=== PATIENT | female | born 1955 | race Caucasian/White ===

== ENCOUNTER 2022-09-08 16:30 | Emergency (ER) | payer OTHER ==
--- NOTE | 2022-09-08 17:27 | RAD REPORT ---
EXAM DESCRIPTION: [facility] Single View09/08/2022 5:21 pm CLINICAL HISTORY: weakness COMPARISON: No comparisons TECHNIQUE: Portable AP view of the chest. FINDINGS: The lungs are clear. No pneumothorax or effusion. The cardiomediastinal contours are unre markable. IMPRESSION: No acute cardiopulmonary process.
[2022-09-08 17:31] LABS: Absolute Lymphocytes (CBC) 2.8 K/uL (0.7-4.9); Hematocrit 30.3 % (36.0-45.0); Lymphocytes % 28.2 % (15.3-44.8); RBC Red Blood Cell Count 3.23 M/uL (3.86-4.86)
[2022-09-08 17:42] LABS: Potassium 3.6 mEq/L (3.5-5.1); Troponin High Sensitivity 4.2 pg/mL (<58.9)
[2022-09-08] MEDS ORDERED: Ringers Lactate 1,000 ML IV ONE (18:09)
--- NOTE | 2022-09-08 18:14 | RAD REPORT ---
EXAM DESCRIPTION: CT - Head Brain Wo Cont - 09/08/2022 5:57 pm CLINICAL HISTORY: near syncope COMPARISON: No comparisons TECHNIQUE: Noncontrast head CT images were obtained without IV contrast. Multiplanar reformats were generated and reviewed. All CT scans are performed using dose optimization technique as appropriate and may include automated exposure control or mA/KV adjustment according to patient size. FINDINGS: No intracranial hemorrhage, mass, or edema. Midline structures are unremarkable. Normal ventricular caliber for age. Ibarra-white matter differentiation is preserved, without evidence of acute infarct. No abnormal extra- axial fluid collections. Mastoid air cells and visualized portions of the paranasal sinuses are clear. No acute bony findings. IMPRESSION: No evidence of an acute intracranial process.
[2022-09-08 19:37] LABS: Specific Gravity 1.006 (1.005-1.030); Urine Bacteria 20-50 /HPF (<20); Urine Bilirubin NEGATIVE (Negative); Urine Blood Negative (Negative); Urine Clarity Extremely Turbid (Clear); Urine Color Colorless (Yellow); Urine Glucose NEGATIVE (Negative); Urine Mucus Slight /HPF (None Seen); Urine Protein NEGATIVE (Negative); Urine RBC <5 /HPF (None Seen); Urine Urobilinogen Normal (Normal)
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
--- NOTE | 2022-09-08 20:09 | EDPHYS ---
Physician Documentation [facility] Name: Armida Marie Age: 67 yrs Sex: Female : 1955 Arrival Date: 09/08/2022 Time: 16:30 Bed 13 Private MD: ED Physician Marcial Rubio HPI: 09/08 16:39 This 67 yrs old Female presents to ER via EMS with complaints of General Weakness. jmm 16:39 This is a 67/f with a history of RA that presents to the ED with complaints of fatigue, jmm near syncope beginning approx 1 month ago. Denies chest pain, shortness of breath, vomiting, diarrhea. Patient recently had a flare of RA to both her knees. . Historical: - Allergies: 16:34 No Known Allergies; db - Immunization history:: Adult Immunizations unknown, Client reports receiving the 2nd dose of the Covid vaccine. - Social history:: Smoking status: Patient denies any tobacco usage or history of. ROS: 16:39 Cardiovascular: Negative for chest pain, palpitations, and edema, Respiratory: Negative jmm for shortness of breath, cough, wheezing, and pleuritic chest pain, Abdomen/GI: Negative for abdominal pain, nausea, vomiting, diarrhea, and constipation. 16:39 Constitutional: Positive for fatigue. 16:39 Neuro: Positive for headache, near syncope. 16:39 All other systems are negative. Exam: 16:39 Constitutional: This is a well developed, well nourished patient who is awake, alert, jmm and in no acute distress. Head/Face: atraumatic. Eyes: EOMI, no conjunctival erythema appreciated ENT: Moist Mucus Membranes Neck: Trachea midline, Supple Chest/axilla: Normal chest wall appearance and motion. Cardiovascular: Regular rate and rhythm. No edema appreciated Respiratory: Normal respirations, no respiratory distress appreciated Abdomen/GI: Non distended Back: Normal ROM Skin: General appearance color normal MS/ Extremity: Moves all extremities, no obvious deformities appreciated, no edema noted to the lower extremities Neuro: Awake and alert Psych: Behavior is normal, Mood is normal, Patient is cooperative and pleasant Vital Signs: 16:26 BP 114 / 64; Pulse 71; Resp 16; Temp 98.8; Pulse Ox 99% ; Weight 63.5 kg; Height 5 ft. db 5 in. ; 17:00 BP 120 / 74; Pulse 70; Resp 16; Pulse Ox 98% on R/A; db 18:07 BP 119 / 69; Pulse 61; Resp 16; Pulse Ox 97% on R/A; db 19:00 BP 123 / 78; Pulse 58; Resp 16; Pulse Ox 100% on R/A; vc1 20:06 BP 149 / 60; Pulse 59; Resp 15; Pulse Ox 100% ; vc1 16:26 Body Mass Index 23.30 (63.50 kg, 165.1 cm) db MDM: 16:39 Patient medically screened. [facility] 22:57 Differential Diagnosis syncope, anemia, chf, sepsis, cad. Data reviewed: vital signs, [facility] nurses notes, lab test result(s), radiologic studies, CT scan, plain films. I considered the following discharge prescriptions or medication management in the emergency department Medications were administered in the Emergency Department. See MAR. Counseling: I had a detailed discussion with the patient and/or guardian regarding: the historical points, exam findings, and any diagnostic results supporting the discharge/admit diagnosis, lab results, radiology results, the need for outpatient follow up, to return to the emergency department if symptoms worsen or persist or if there are any questions or concerns that arise at home. ED course: Labs concerning for dehydration. IVF given. UA concerning for uti. Advised to follow up with pcp and otherwise given strict return precautions. patient understood and agrees with the plan of care. . 09/08 16:43 Order name: Basic Metabolic Panel; Complete Time: 17:45 [facility] 09/08 16:43 Order name: CBC with Diff; Complete Time: 17:32 [facility] 09/08 16:43 Order name: NT PRO-BNP; Complete Time: 17:45 [facility] 09/08 16:43 Order name: Troponin HS; Complete Time: 17:45 [facility] 09/08 16:43 Order name: Urinalysis w/ reflexes; Complete Time: 19:58 [facility] 09/08 16:43 Order name: SARS-COV-2 RT PCR; Complete Time: 20:33 [facility] 09/08 20:00 Order name: Urine Culture [facility] 09/08 16:43 Order name: XRAY Chest (1 view); Complete Time: 17:28 [facility] 09/08 17:28 Order name: CT Head Brain wo Cont; Complete Time: 18:15 [facility] 09/08 16:43 Order name: EKG; Complete Time: 16:44 [facility] 09/08 16:43 Order name: Cardiac monitoring; Complete Time: 18:09 [facility] 09/08 16:43 Order name: EKG - Nurse/Tech; Complete Time: 18:09 [facility] 09/08 16:43 Order name: IV Saline Lock; Complete Time: 18:09 [facility] 09/08 16:43 Order name: Labs collected and sent; Complete Time: 18: [facility] 09/08 16:43 Order name: O2 Per Protocol; Complete Time: 18: [facility] 09/08 16:43 Order name: O2 Sat Monitoring; Complete Time: 18: [facility] Administered Medications: 18:05 Drug: Lactated Ringers Solution IV 500 ml Route: IV; Rate: 250 ml/hr; Site: right db forearm; 20:20 Follow up: IV Status: Completed infusion; IV Intake: 500ml vc1 20:19 Drug: Rocephin IV 1 grams Route: IV; Rate: calculated rate; Site: right hand; vc1 Disposition: 09/09 10:00 Co-signature as Attending Physician, Marcial Rubio MD I reviewed the patient's care rt provided by the Advanced Practice Provider and agree with the diagnosis and treatment plan. Disposition Summary: 09/08/22 20:08 Discharge Ordered Location: Home [facility] Condition: Stable [facility] Diagnosis - UTI/ Urinary tract infection, site not specified jmm - Weakness [facility] Followup: [facility] - With: Private Physician - When: 2 - 3 days - Reason: Recheck today's complaints, Continuance of care, Re-evaluation by your physician Discharge Instructions: - Discharge Summary Sheet [facility] - Urinary Tract Infection, Adult [facility] Forms: - Medication Reconciliation Form [facility] - Thank You Letter [facility] - Antibiotic Education [facility] - Prescription Opioid Use [facility] Prescriptions: - Voltaren Arthritis Pain 1 % Topical gel - apply 4 gram by TOPICAL route 4 times per day As needed apply to single knee, jmm ankle, foot; for foot includes sole/toes/top of foot; 1 unit; Refills: 0, Product Selection Permitted - cefpodoxime 200 mg Oral Tablet - take 1 tablet by ORAL route every 12 hours for 10 days with food; 20 tablet; [facility] Refills: 0, Product Selection Permitted Signatures: Dispatcher [employer] EDMS MickaJoao bonilla PA PA jmm Calcote, Vanessa RN RN vc1 Anna Ontiveros, RN RN db Marcial Rubio MD MD rt
[2022-09-08] MEDS ORDERED: CEFTRIAXONE 1000 MG/VIAL ONE (20:17)
[2022-09-08] MEDS ORDERED: NA CHLORIDE 0.9% 50 ML ONE (20:17)
[2022-09-08 21:23] VITALS: O2SAT 100
[2022-09-08 21:29] VITALS: BP 149/60
--- NOTE | 2022-09-09 17:42 | EKG ---
Test Date: 2022-09-08 Test Time: 17:09:17 Tamale Maker: GLORY MEASUREMENT RESULTS: Intervals: Rate: 63 FL: 164 QRSD: 80 QT: 394 QTc: 403 Ragland: P: 36 FL: 164 QRS: -6 T: 25 INTERPRETIVE STATEMENTS: Normal sinus rhythm Normal ECG No previous ECG available for comparison Electronically Signed On 09-09-22 17:39:30 CDT by Jose Carbajal
== END 2022-09-08 20:39 | disposition home or self-care (01) ==
LOC: ER 16:30
DX: N39.0 Urinary tract infection, site not specified (principal); Z20.822 Contact with and (suspected) exposure to COVID-19
CPT/HCPCS: 87088; 85025; 81001; 87086; 80048; 36415; 84484; 83880; 87635; 70450; 71045; J7120; J0696; 93005

== ENCOUNTER 2023-01-07 21:00 | Emergency (ER) | payer OTHER ==
--- OUTSIDE RECORDS SUMMARY | 2023-01-07 21:04 | XMS REPORT | Continuity of Care Document ---
:1955 Author Organization [facility] t Address [address] [place] [address] [place] [id number] Care Team Providers Name Role Phone HANNAH QUILES Primary Care Physician Unavailable Rosario Yu RN Attending Clinician Unavailable Hannah Quiles MD Attending Clinician Radha Phipps Attending Clinician Unavailable Spencer Perez MD Attending Clinician Bobbi Patricia RN Attending Clinician Unavailable TOBIN LINO Attending Clinician Unavailable Tobin Lino MD Attending Clinician Doctor Unassigned, [place] Attending Clinician Unavailable JHON MENDOZA Attending Clinician Unavailable Jhon Leo Attending Clinician TOBIN LINO Admitting Clinician Unavailable JHON MENDOZA Admitting Clinician Unavailable Payers Payer Name Policy Type Policy Number Effective Date Expiration Date S [facility] - [id number] 2021 00:00:00 OUT OF STATE Problems Condition Condition Condition Status Onset Resolution Last Treating Co mments Source Name Details Category Date Date Treatment Clinician Date Hypokalemi Hypokalemi Disease Active M ethodi a a 12-08 00:00: Hospita 00 l Acute Acute Disease Active Methodi cystitis cystitis 09-14 st without without 00:00: Hospita hematuria hematuria 00 l Greater Greater Disease Active Methodi trochanter trochanter 6-27 st ic ic 00:00: Hospita bursitis bursitis 00 l of left of left hip hip Polyarticu Polyarticu Disease Active M ethodi lar lar [address] st arthritis arthritis 00:00: Hosp navid 00 l Chronic Chronic Disease Active Methodi pain pain [address] syndrome syndrome 00:00: Hospit a 00 l Anxiety Anxiety Disease Active Methodi 08-17 st 00:00: Hospita 00 l 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 08-17 sterolemia sterolemia 00:00: Ho spita 00 l Near Near Disease Active Methodi syncope syncope 08-17 st 00:00: Hospita 00 l Lumbar Lumbar Disease Active Methodi back pain back pain 08-17 st with with 00:00: Hospita radiculopa radiculopa 00 l thy thy affecting affecting left lower left lower extremity extremity Primary Primary Disease Active Methodi insomnia insomnia 12-05 00:00: Hospita 00 l Osteoarthr Osteoarthr Disease Active M ethodi itis of itis of 12-05 hand hand 00:00: Hospita 00 l Morbid Morbid Disease Active Methodi obesity obesity 12-05 00:00: Hospita 00 l Essential Essential Disease Active Met hodi hypertensi hypertensi 17 st on on 00:00: Hospita 00 l No known No known Disease Unive rs active active ity of problems problems [facility] Allergies, Adverse Reactions, Alerts Allergy Allergy Status Severity Reaction(s) Onset Inactive Treating Comm ents Source Name Type Date Date Clinician NO KNOWN Drug Active Univers ALLERGIE Class ity of S [facility] Social History Social Habit Start Date Stop Date Quantity Comments Source Sexual orientation Method [facility] Hospital Exposure to 2021-08-01 2021-08-11 Not sure [facility] SARS-CoV-2 (event) 00:00:00 09:21:00 [facility] Branch Sex Ass[birth year] At [birth year] [facility] 00:00:00 00:00:00 Smoking Status Start Date Stop Date Source Tobacco smoking consumption unknown [facility] Medications Ordered Filled Start Stop Current Ordering Indication Dosage Frequency Signature Comments Components Source Medication Medication Date Date Medication? Clinician (SIG) Name Name mupirocin 2022-03 Yes [id number] Apply M ethodi (BACTROBAN) 0-[id number] 2 % cream 00:00: 3D 3 (three) Hos krystyna 00 times a l day. Apply a small amount to affected area on face atorvastati 2022-03 Yes 10mg QD Take 1 Meth madhu n (LIPITOR) 0-09 tablet (10 st 10 mg 13:54: mg total) Hospita tablet 48 by mouth l daily. ALPRAZolam 2022-03 Yes TAKE 1 Metho di (XANAX) 2 0-[address] MG tablet 00:00: MOUTH FOUR Ho spita 00 TIMES A l DAY NEEDED dextroamphe Yes TAKE 1 Meth madhu tamine-amph 9-[address] etamine 00:00: MOUTH Hospita (ADDERALL) 00 TWICE l 20 mg DAILY tablet HYDROcodone Yes [id number] 1{tbl} Q6H Take 1 M ethodi -acetaminop 9-[address] hen ([employer]) 00:00: mouth Hospi ta 10-325 mg 00 every 6 l per tablet (six) hours as needed for moderate pain .chronic pain, one tab po q 8 prn pain. Max Daily Amount: 4 tablets ALPRAZolam 2022- No TAKE ONE Me thodi (XANAX) 2 9- 10-03 (1) st MG tablet 00:00: 00:00 TABLET(S) Ho spita 00 :00 BY MOUTH l FOUR TIMES A DAY NEEDED. buPROPion Yes TAKE 1 Method i (WELLBUTRIN 9-[address] ) 75 MG 00:00: MOUTH ONCE Hosp navid tablet 00 A DAY l cyclobenzap Yes TAKE 1 Meth madhu rine 9-[address] (FLEXERIL) 00:00: MOUTH Hospit a 10 mg 00 TWICE l tablet DAILY HYDROcodone 2022- No TAKE 2 Met hodi -acetaminop 8-31 09-29 TABLETS BY s t hen ([employer]) 00:00: 00:00 MOUTH Hosp navid 10-325 mg 00 :00 THREE l per tablet TIMES DAILY NEEDED FOR PAIN dextroamphe 0 2022- No TAKE 1 Met hodi tamine-amph 11-[address] etamine 00:00: 00:00 MOUTH Hospita (ADDERALL) 00 :00 TWICE l 20 mg DAILY tablet carvediloL 2022-0 Yes 25mg Q.5D TAKE 1 Metho di (COREG) 25 11-[address] MG tablet 00:00: MOUTH Hospita 00 TWICE l DAILY escitalopra 2022-0 Yes 5mg Q.5D TAKE 1 Meth madhu m (LEXAPRO) 11-[address] 5 MG tablet 00:00: MOUTH Hospi ta 00 TWICE A l DAY gemfibroziL 2022-0 Yes 600mg Q.5D TAKE 1 Met hodi (LOPID) 600 11-[address] MG tablet 00:00: MOUTH Hospita 00 TWICE l DAILY hydroCHLORO 2022-0 Yes 25mg QD TAKE 1 Meth madhu thiazide 11-[address] (HYDRODIURI 00:00: MOUTH Hospi ta L) 25 MG 00 EVERY DAY l tablet cyclobenzap 2022- No TAKE 1 Met hodi rine 11-13 TABLET BY (FLEXERIL) 00:00: 00:00 MOUTH Hospi ta 10 mg 00 :00 TWICE l tablet DAILY nitrofurant 2022-0 Yes 100mg Q.5D Take 1 Met hodi oin, 11-[address] macrocrysta 00:00: (100 mg Hos krystyna l-monohydra 00 total) by l te, mouth 2 (MACROBID) (two) 100 MG times a capsule day. dextroamphe 2022-2022- No TAKE 1 Met hodi tamine-amph 10-[address] etamine 00:00: 00:00 MOUTH Hospita (ADDERALL) 00 :00 TWICE l 20 mg DAILY tablet HYDROcodone 2022-0 2022- No TAKE 2 Met hodi -acetaminop 10-19 TABLETS BY gio chester (NORCO) 00:00: 00:00 MOUTH Hosp navid 10-325 mg 00 :00 THREE l per tablet TIMES DAILY NEEDED FOR PAIN traZODone 2022-0 Yes Methodi (DESYREL) 10-18 st 100 MG 00:00: Hospita tablet 00 l hydroCHLORO 2022- No Metho di thiazide 10-18 st (HYDRODIURI 00:00: 00:00 Hospi ta L) 25 MG 00 :00 l tablet escitalopra 2022- No Metho di m (LEXAPRO) 10-18 st 5 MG tablet 00:00: 00:00 Hospi ta 00 :00 l cyclobenzap 2022- No 10mg Q.5D Take 1 Met hodi rine 10-14 tablet (10 st (FLEXERIL) 15:35: 00:00 mg total) H ospita 10 mg 52 :00 by mouth 2 l tablet (two) times a day as needed. cyclobenzap 2022- No TAKE 1 Met hodi rine 10-[address] (FLEXERIL) 00:00: 00:00 MOUTH Hospi ta 10 mg 00 :00 TWICE l tablet DAILY zolpidem Yes TAKE 1 AND Met hodi (AMBIEN) 10 10-08 1/2 st mg tablet 00:00: TABLETS BY Ho spita 00 MOUTH AT l BEDTIME eszopiclone Yes [id number] 3mg QD Take 1 M ethodi (LUNESTA) 3 - tablet (3 st mg tablet 00:00: mg total) Hos krystyna 00 by mouth l nightly. Take immediatel y before bedtime mupirocin Yes APPLY A Metho di (BACTROBAN) 09-[address] 2 % 00:00: AMOUNT TO Hospita ointment 00 AFFECTED l AREA THREE TIMES A DAY TO LEG buPROPion 2022- No TAKE 1 Metho di (WELLBUTRIN 09-[address] ) 75 MG 00:00: 00:00 MOUTH ONCE Hos krystyna tablet 00 :00 A DAY l HYDROcodone 2022- No TAKE 2 Met hodi -acetaminop 09-15 TABLETS BY gio chester (NORCO) 00:00: 00:00 MOUTH Hosp navid 10-325 mg 00 :00 THREE l per tablet TIMES DAILY NEEDED FOR PAIN dextroamphe 2022- No TAKE 1 Met dwight tamine-amph 09-[address] etamine 00:00: 00:00 MOUTH Hospita (ADDERALL) 00 :00 TWICE l 20 mg DAILY tablet ALPRAZolam 2022- No TAKE 1 Meth madhu (XANAX) 2 08-[address] MG tablet 00:00: 00:00 MOUTH FOUR H ospita 00 :00 TIMES A l DAY NEEDED ALPRAZolam 2022- No TAKE 1 Meth madhu (XANAX) 2 08-[address] MG tablet 00:00: 00:00 MOUTH FOUR H ospita 00 :00 TIMES A l DAY NEEDED dextroamphe 2022- No TAKE 1 Met hodi tamine-amph 08-[address] etamine 00:00: 00:00 MOUTH Hospita (ADDERALL) 00 :00 TWICE l 20 mg DAILY tablet HYDROcodone 2022- No TAKE 2 Met hodi -acetaminop 08-19 TABLETS BY gio chester ([employer]) 00:00: 00:00 MOUTH Hosp navid 10-325 mg 00 :00 THREE l per tablet TIMES DAILY NEEDED FOR PAIN amoxicillin 2022- No [id number] 1{tbl} Q.5D Take 1 Methodi -pot 08-[address] clavulanate 00:00: 00:00 mouth 2 Ho spita (Augmentin) 00 :00 (two) l 875-125 mg times a per tablet day. escitalopra 2022- No 5mg Q.5D Take 1 Met dwight m (LEXAPRO) 07-19 tablet (5 st 5 MG tablet 00:00: 00:00 mg total) Hospita 00 :00 by mouth 2 l (two) times a day. mupirocin 2022- No [id number] Apply Methodi (BACTROBAN) 06-[id number] 2 % cream 00:00: 00:00 3D 3 (three) Ho spita 00 :00 times a l day. Apply a small amount to affected area to leg buPROPion 2022- No 75mg QD Take 1 Metho di (WELLBUTRIN 3-07 06-29 tablet (75 s t ) 75 MG 00:00: 00:00 mg total) Hosp navid tablet 00 :00 by mouth l daily. dextroamphe 2022- No 20mg Q.5D Take 1 Met hodi tamine-amph 2-10 -06 tablet (20 s t etamine 00:00: 00:00 mg total) Hosp navid (ADDERALL) 00 :00 by mouth 2 l 20 mg (two) tablet times a day. ALPRAZolam 2021-03- No 2mg Q.25D Take 1 Met hodi (XANAX) 2 05-18-12 tablet (2 st MG tablet 00:00: 00:00 mg total) Ho spita 00 :00 by mouth 4 l (four) times a day as needed for anxiety. hydroCHLORO 2021-03- No 25mg QD Take 1 Met hodi thiazide 1-14 06-13 tablet (25 st (HYDRODIURI 00:00: 00:00 mg total) Hospita L) 25 MG 00 :00 by mouth l tablet daily. albuterol 2021-03- No 2{puff} Q4H Inhale 2 Methodi 90 0-18 06-[address] mcg/actuati 00:00: 00:00 every 4 Ho spita on inhaler 00 :00 (four) l hours as needed for wheezing (for cough). meloxicam Yes [id number] 1{tbl} Take 1 Univers 7.5 mg TbDL 5-24 tablet by ity of 00:00: mouth [place] 00 daily. [facility] HYDROcodone 2022- [place] [id number] 2{tbl} Q.[id number] Take 2 Methodi -acetaminop 3-16 - [id number] tablets by st hen (NORCO) 00:00: 00:00 3D mouth 3 Ho spita 10-325 mg 00 :00 (three) l per tablet times a day as needed for moderate pain .acute pain. zolpidem 2022- No Take by Metho di (AMBIEN) 10 1-12 07-[address] mg tablet 00:00: 00:00 Take 1 and H ospita 00 :00 1/2 l tablets at bedtime. HYDROcodone 2020-03 No 1{tbl} 1 tablet, Univers -acetaminop 0-24 10-24 Oral, ity of hen (NORCO 07:00: 06:00 ONCE, 1 Mika as 5) 5-325 mg 00 :00 dose, On Medi jay tablet 1 [place] [facility] tablet 01/11/21 at 0200, JUANIS No known 2020-03 No Univers medications 0-23 ity of 23:25: [address] No known 2020-03 No Univers medications 0-23 ity of 23:25: [address] carvediloL 2022- No 25mg Q.5D Take 1 Meth madhu (COREG) 25 6- 08-26 tablet (25 st MG tablet 00:00: 00:00 mg total) Ho spita 00 :00 by mouth 2 l (two) times a day. celecoxib Yes 200mg QD Take 1 Metho di (CeleBREX) 3-[address] 200 MG 00:00: (200 mg Hospita capsule 00 total) by l mouth daily. gemfibroziL 2022- No 600mg Q.5D Take 1 Me thodi (LOPID) 600 - 08-[address] MG tablet 00:00: 00:00 (600 mg Hosp navid 00 :00 total) by l mouth 2 (two) times a day. ergocalcife 2022- No [id number] Q.5W Take 1 M ethodi rol 03-22 06-[address] (VITAMIN 00:00: 00:00 (50,000 Hospi ta D2) 50,000 00 :00 Units l unit total) by capsule mouth 2 (two) times a week. diclofenac 2016-03 Yes Q.5D 2 (two) Meth madhu (VOLTAREN) 0-[address] 1 % gel 00:00: day as Hospita 00 needed l (for pain). Apply a small amount to affected area twice a day as needed for pain Vital Signs Vital Name Observation Time Observation Value Comments Source Systolic blood 2021-08-11 14:21:00 137 mm[Hg] [facility]iver [facility]ity of [facility] Diastolic blood 2021-08-11 14:21:00 77 [facility]Hg[facility] 2021-08-11 14:21:00 69 /min [facility] [place] Body temperature 2021-08-11 14:21:00 36.78 Henny Univ ersity [facility] Respiratory rate 2021-08-11 14:21:00 18 /min Univ ersity of [facility] Body height 2021-08-11 14:21:00 165.1 cm Universi ty of [facility] Body weight 2021-08-11 14:21:00 65.772 kg Universi ty of [facility] BMI 2021-08-11 14:21:00 24.13 kg/m2 Universi ty of [facility] Oxygen saturation in 2021-08-11 14:21:00 99 /min University of Arterial blood by [facility] Pulse oximetry Branch Systolic blood 2021-01-11 06:00:00 144 mm[Hg] Univer sity of pressure [facility] Diastolic blood 2021-01-11 06:00:00 74 mm[Hg] Unive rsity of [facility] Heart rate 2021-01-11 06:00:00 72 /min [facility] [place] Oxygen saturation in 2021-01-11 06:00:00 100 /min University of Arterial blood by [facility] Pulse oximetry Branch Body temperature 2021-01-11 04:32:00 35.78 Henny [facility] Respiratory rate 2021-01-11 04:32:00 20 /min Univ ersity [facility] Body height 2021-01-11 04:32:00 165.1 cm Universi ty of [facility] Body weight 2021-01-11 04:32:00 63.504 kg [facility] [place] BMI 2021-01-11 04:32:00 23.30 kg/m2 Universi ty [facility] Systolic blood 2022-12-27 18:50:00 124 mm[Hg] Method [facility] Hospital pressure Diastolic blood 2022-12-27 18:50:00 80 mm[Hg] Metho dist [facility] pressure Heart rate 2022-12-27 18:50:00 66 /min [facility]is [facility] Hospital Body temperature 2022-12-27 18:50:00 36.56 Henny [facility] 2022-12-27 18:50:00 17 /min [facility] Body height 2022-12-27 18:50:00 165.1 cm [facility] Body weight 2022-12-27 18:50:00 65.772 kg [facility] BMI 2022-12-27 18:50:00 24.13 kg/m2 [facility] Oxygen saturation in 2022-12-27 18:50:00 99 /min [facility] Arterial blood by Pulse oximetry Procedures Procedure Date / Time Performing Source Performed Clinician [facility] MRI BRAIN WO CONTRAST 2022-12-24 18:37:00 Lux, [place] [facility] (FUJI RIS) COMPREHENSIVE METABOLIC 2022-12-08 21:30:00 Lux, [facility] [place] PANEL CBC WITH PLATELET AND 2022-12-08 21:30:00 Lux, [facility] DIFFERENTIAL URINE CULTURE 2022-11-11 19:47:00 Lux, [facility] spital CBC WITH PLATELET AND 2022-11-11 18:42:00 Lux, [facility] DIFFERENTIAL COMPREHENSIVE METABOLIC 2022-11-11 18:42:00 Lux, [facility] [place] PANEL SEDIMENTATION RATE 2022-11-11 18:42:[address] Lux, [facility] URINALYSIS, AUTOMATED WITH 2022-11-11 18:42:00 Lux, [facility] MICROSCOPY COMPREHENSIVE METABOLIC 2022-10-05 18:32:00 Lux, [facility] [place] PANEL CBC WITH PLATELET AND 2022-10-05 18:32:00 Lux, [facility] DIFFERENTIAL SEDIMENTATION RATE 2022-10-05 18:32:00 Lux, [facility] URINALYSIS, AUTOMATED WITH 2022-09-14 20:29:00 Lux, [facility] MICROSCOPY COMPREHENSIVE METABOLIC 2022-09-14 20:27:00 Lux, [facility] [place] PANEL CBC WITH PLATELET AND 2022-09-14 20:27:00 Lux, [facility] DIFFERENTIAL SEDIMENTATION RATE 2022-09-14 20:27:00 Lux, [facility] ANTINUCLEAR ANTIBODIES (KECIA) 2022-08-31 20:04:00 Lux, [facility] WITH REFLEX TO TITER AND PATTERN, IMMUNOFLUORESCENCE HEPATITIS B CORE ANTIBODY 2022-08-31 19:19:00 Lux, [place] [facility] TOTAL THYROID STIMULATING HORMONE 2022-08-31 19:17:00 Lux, [facility] T3, FREE 2022-08-31 19:17:00 Lux, [facility] spital T4, FREE 2022-08-31 19:17:00 Lux, [facility] spital SEDIMENTATION RATE 2022-08-31 19:17:00 Lux, [facility] VITAMIN B12 LEVEL 2022-08-31 19:17:00 Lux, [facility] CREATINE KINASE, TOTAL (CPK) 2022-08-31 19:17:00 Lux, [facility] CBC WITH PLATELET AND 2022-08-31 19:17:00 Lux, [facility] DIFFERENTIAL COMPREHENSIVE METABOLIC 2022-08-31 19:17:00 Lux, [facility] [place] PANEL RHEUMATOID FACTOR 2022-08-31 19:17:00 Lux, [facility] HEPATITIS B SURFACE ANTIGEN 2022-08-31 19:17:00 Lux, [facility] HEPATITIS C ANTIBODY 2022-08-31 19:17:00 Lux, [facility] MRI LUMBAR SPINE WO 2022-08-24 18:37:00 Lux, [facility] [place] CONTRAST (FUJI RIS) CREATINE KINASE, TOTAL (CPK) 2022-08-17 16:27:00 Lux, [facility] COMPREHENSIVE METABOLIC 2022-08-17 16:27:00 Lux, [facility] [place] PANEL CBC WITH PLATELET AND 2022-08-17 16:27:00 Lux, [facility] DIFFERENTIAL MAGNESIUM LEVEL 2022-08-17 16:27:00 Lux, [facility] spital COMP. METABOLIC PANEL 2021-08-11 15:39:00 Tobin Lino [facility] ([id number]) [facility] CBC WITH DIFF 2021-08-11 15:39:00 Tobin Lino [facility] D-DIMER 2021-08-11 15:39:00 [place] [facility] XR CHEST 1 VW 2021-08-11 15:27:37 Tobin Lino [facility] XR RIBS 3 VW RIGHT 2021-08-11 15:27:37 Tobin Lino [facility] URINALYSIS 2021-08-11 14:56:00 [place] Tobin [facility] CONSENT/REFUSAL FOR 2021-08-11 14:18:12 Doctor [facility] DIAGNOSIS AND TREATMENT [place] [facility] ED LACERATION REPAIR 2021-01-11 06:03:52 Jhon Mendoza [facility] XR PELVIS <3 VW 2021-01-11 05:32:18 Jhon Mendoza [facility] XR RIBS 3 VW LEFT 2021-01-11 05:32:18 Jhon Mendoza [facility] CT CERVICAL SPINE WO 2021-01-11 05:21:43 Jhon Mendoza [facility] CONTRAST [facility] CT HEAD WO CONTRAST 2021-01-11 05:21:43 Jhon Mendoza [facility] NOTICE OF PRIVACY PRACTICES 2021-01-11 05:03:11 Doctor Jeffrey henley [facility] [place] [facility] CONSENT/REFUSAL FOR 2021-01-11 05:02:56 Doctor Megan [facility] Plan of Care Planned Activity Planned Date Details Comments Source Future Scheduled 2023-01-07 Screening for [facility] Test 15:12:06 malignant neoplasm of colon (procedure) [code = 149301792] Future Scheduled 2023-01-07 Screening for [facility] Test 15:12:06 malignant neoplasm of colon (procedure) [code = 469012613] Future Scheduled 2023-01-07 Screening for [facility] Test 15:12:06 malignant neoplasm of colon (procedure) [code = 788565715] Future Scheduled 2023-01-07 Screening for [facility] Test 15:12:06 malignant neoplasm of cervix (procedure) [code = 668756964] Future Scheduled 2023-01-07 SHINGLES VACCINES ([facility] 15:12:06 of 2) [code = SHINGLES VACCINES (1 of 2)] Future Scheduled 2023-01-07 RSV VACCINES > 60 YR Met [facility] Test 15:12:06 (1 - 1-dose 60+ series) [code = RSV VACCINES > 60 YR (1 - 1-dose 60+ series)] Future Scheduled 2023-01-07 BREAST CANCER [facility] Test 15:12:06 SCREENING [code = BREAST CANCER SCREENING] Future Scheduled 2023-01-07 65+ PNEUMOCOCCAL [facility] Test 15:12:06 VACCINE (1 - PCV) [code = 65+ PNEUMOCOCCAL VACCINE (1 - PCV)] Future Scheduled 2023-01-07 COVID-19 VACCINE (5 - Me [facility] Test 15:12:06 season) [code = COVID-19 VACCINE ( - season)] Future Scheduled 2023-01-07 INFLUENZA VACCINE (#1) [facility] Test 15:12:06 [code = INFLUENZA VACCINE (#1)] Future Scheduled 2023-01-07 Screening for [facility] Test 15:12:06 malignant neoplasm of colon (procedure) [code = 392732805] Future Scheduled 2023-01-07 Screening for [facility] Test 15:12:06 malignant neoplasm of colon (procedure) [code = 097448829] Encounters Start End Encounter Admission Attending Care Care Encounter Source Date/Time Date/Time Type Type Clinicians Facility Department ID 2023-01-05 2023-01-05 Refill Rosario Yu 1.2.840.1 [id number] Methodi 00:00:00 00:00:[address] 3.430.2.7 Hospit a .3.375017 l .8 2022-12-27 2022-12-28 Office Hannah Quiles 1.2.840.1 [id number] Methodi 14:00:00 11:22:04 Visit [place]helsea 38996.1.[address] 3.430.2.7 Hospit a .3.228146 l .8 2022-12-27 2022-12-28 Outpatient HANNAH QUILES [facility] [id number] [place] 00:00:00 00:00:[address] 2022-12-24 2022-12-24 Procedure Hannah Quiles 1.2.840.8 [id number] Methodi 13:00:00 13:39:34 [address] R. [address]8819.1.[address] 3.430.2.7 Hospit a .3.404929 l .8 2022-12-24 2022-12-24 Travel 1.2.840.1 1.2.353.755 [id number] Methodi 00:00:00 00:00:[address] 3.430.2.7 0.2.7.3.698 Ho spita .3.451229 084.8 l .8 2022-12-24 2022-12-24 Outpatient HANNAH QUILES [facility] [id number] [place] 00:00:00 00:00:[address] 2022-12-21 2022-12-21 Refill Hannah Quiles 1.2.840.1 [id number] Methodi 00:00:00 00:00:[address] 3.430.2.7 Hospit a .3.437175 l .8 2022-12-17 2022-12-17 Refill Hannah Quiles 1.2.840.1 [id number] Methodi 00:00:00 00:00:[address] 3.430.2.7 Hospit a .3.604325 l .8 2022-12-17 2022-12-17 Refill Hannah Quiles 1.2.840.1 [id number] Methodi 00:00:00 00:00:[address] 3.430.2.7 Hospit a .3.526481 l .8 2022-12-13 2022-12-13 Refill Hannah Quiles 1.2.840.1 [id number] Methodi 00:00:00 00:00:[address] 3.430.2.7 Hospit a .3.713624 l .8 2022-12-08 2022-12-08 Office Hannah Quiles 1.2.840.1 [id number] Methodi 14:00:00 17:59:10 Visit R. 11173.1.[address] 3.430.2.7 Hospit a .3.519223 l .8 2022-12-08 2022-12-08 Outpatient HANNAH QUILES [facility] [id number] [place] 00:00:00 00:00:[address] 2022-12-07 2022-12-07 Orders Moise 1.2.840.1 [id number] Methodi 00:00:00 00:00:00 Only Radha 33790.1.[address] 3.430.2.7 Hospit a .3.520000 l .8 2022-11-30 2022-12-01 Office Hannah Quiles 1.2.840.1 [id number] Methodi 14:30:00 11:53:33 [address] R. 08166.1.[address] 3.430.2.7 Hospit a .3.481013 l .8 2022-11-30 2022-12-01 Outpatient HANNAH QUILES [facility] [id number] [place] 00:00:00 00:00:[address] 2022-11-17 2022-11-17 Refill Hannah Quiles 1.2.840.1 [id number] Methodi 00:00:00 00:00:[address] 3.430.2.7 Hospit a .3.185415 l .8 2022-11-16 2022-11-16 Travel 1.2.840.1 1.2.332.175 [id number] Methodi 00:00:00 00:00:[address] 3.430.2.7 0.2.7.3.698 Ho spita .3.467810 084.8 l .8 2022-11-12 2022-11-12 Refill Hannah Quiles 1.2.840.1 [id number] Methodi 00:00:00 00:00:[address] 3.430.2.7 Hospit a .3.771650 l .8 2022-11-11 2022-11-11 Office Hannah Quiles 1.2.840.1 [id number] Methodi 13:00:00 14:09:13 [address] 00466.1.[address] 3.430.2.7 Hospit a .3.011168 l .8 2022-11-11 2022-11-11 Travel 1.2.840.1 1.2.317.180 [id number] Methodi 00:00:00 00:00:[address] 3.430.2.7 0.2.7.3.698 Ho spita .3.266246 084.8 l .8 2022-11-11 2022-11-11 Outpatient [facility] [id number] [place] 00:00:00 00:00:[address] 2022-11-10 2022-11-10 Documentat Magid, 1.2.840.1 [id number] 2 [id number] Methodi 00:00:00 00:00:00 ion Spencer Rodgers 29825.1.[address] 3.430.2.7 Hospit a .3.047704 l .8 2022-10-19 2022-10-19 Travel 1.2.840.1 1.2.122.326 9083 037214 Methodi 00:00:00 00:00:[address] 3.430.2.7 0.2.7.3.698 Ho spita .3.680240 084.8 l .8 2022-10-18 2022-10-18 Refill Hannah Quiles 1.2.840.1 [id number] Methodi 00:00:00 00:00:[address] 3.430.2.7 Hospit a .3.854022 l .8 2022-09-14 2022-10-15 Office Hannah Quiles 1.2.840.1 [id number] Methodi 15:00:00 10:02:12 Visit R[address] 00035.1.[address] 3.430.2.7 Hospit a .3.172829 l .8 2022-10-14 2022-10-14 Refill Hannah Quiles 1.2.840.1 [id number] Methodi 00:00:00 00:00:[address] 3.430.2.7 Hospit a .3.916764 l .8 2022-10-08 2022-10-08 Refill Hannah Quiles 1.2.840.1 [id number] Methodi 00:00:00 00:00:[address] 3.430.2.7 Hospit a .3.579368 l .8 2022-10-05 2022-10-05 Office Hannah Quiles 1.2.840.1 [id number] Methodi 13:00:00 13:44:31 [address]23.1.[address] 3.430.2.7 Hospit a .3.952099 l .8 2022-10-05 2022-10-05 Outpatient HANNAH QUILES [place] [id number] [place] 00:00:00 00:00:[address] 2022-09-20 2022-09-20 Refill Hannah Quiles 1.2.840.1 [id number] Methodi 00:00:00 00:00:[address] 3.430.2.7 Hospit a .3.857578 l .8 2022-09-16 2022-09-16 Refill Hannah Quiles 1.2.840.1 [id number] Methodi 00:00:00 00:00:[address] 3.430.2.7 Hospit a .3.326045 l .8 2022-09-15 2022-09-15 Refill Hannah Quiles 1.2.840.1 [id number] Methodi 00:00:00 00:00:[address] 3.430.2.7 Hospit a .3.160337 l .8 2022-09-14 2022-09-14 Travel 1.2.840.1 1.2.249.305 [id number] [id number] Methodi 00:00:00 00:00:[address] 3.430.2.7 0.2.7.3.698 Ho spita .3.117866 084.8 l .8 2022-09-14 2022-09-14 Outpatient HANNAH QUILES [facility] [id number] [place] 00:00:00 00:00:[address] 2022-09-08 2022-09-08 Telephone Harshad, 1.2.840.1 [id number] 2 [id number] Methodi 00:00:00 00:00:[address] 3.430.2.7 Hospit a .3.116850 l .8 2022-09-07 2022-09-07 Telephone Harshad, 1.2.840.1 [id number] 2 [id number] Methodi 00:00:00 00:00:[address] 3.430.2.7 Hospit a .3.313830 l .8 2022-08-31 2022-09-01 Office Hannah Quiles 1.2.840.1 [id number] Methodi 13:30:00 11:25:31 [place]. 47880.1.[address] 3.430.2.7 Hospit a .3.042576 l .8 2022-09-01 2022-09-01 Telephone Rosario Yu 1.2.840.1 [id number] Methodi 00:00:00 00:00:[address] 3.430.2.7 Hospit a .3.797073 l .8 2022-08-31 2022-09-01 Outpatient HANNAH QUILES [facility] [id number] [place] 00:00:00 00:00:[address] 2022-08-30 2022-08-30 Refill Hannah Quiles 1.2.840.1 [id number] Methodi 00:00:00 00:00:[address] 3.430.2.7 Hospit a .3.734538 l .8 2022-08-24 2022-08-24 Procedure Hannah Quiles 1.2.840.9 [id number] 2 [id number] Methodi 13:00:00 13:40:[address]344.1.[address] 3.430.2.7 Hospit a .3.803593 l .8 2022-08-24 2022-08-24 Outpatient HANNAH QUILES [facility] [id number] [place] 00:00:00 00:00:[address] 2022-08-24 2022-08-24 Telephone Rosario Yu 1.2.840.1 [id number] Methodi 00:00:00 00:00:[address] 3.430.2.7 Hospit a .3.964368 l .8 2022-08-24 2022-08-24 Travel 1.2.840.1 1.2.133.461 8933 [id number] Methodi 00:00:00 00:00:[address] 3.430.2.7 0.2.7.3.698 Ho spita .3.528650 084.8 l .8 2022-08-23 2022-08-23 Refill Hannah Quiles 1.2.840.1 [id number] Methodi 00:00:00 00:00:[address] 3.430.2.7 Hospit a .3.824184 l .8 2022-08-19 2022-08-19 Refill Hannah Quiles 1.2.840.1 [id number] Methodi 00:00:00 00:00:[address] 3.430.2.7 Hospit a .3.037568 l .8 2022-08-17 2022-08-18 Office Hannah Quiles 1.2.840.1 [id number] Methodi 11:00:00 15:59:52 [address] R[address] 18567.1.[address] 3.430.2.7 Hospit a .3.741884 l .8 2022-08-17 2022-08-18 Outpatient HANNAH QUILES [facility] [id number] [place] 00:00:00 00:00:[address] 2022-08-17 2022-08-17 Travel 1.2.840.1 1.2.626.621 [id number] Methodi 00:00:00 00:00:[address] 3.430.2.7 0.2.7.3.698 spita .3.678458 084.8 l .8 2022-08-12 2022-08-12 Abstract Hannah Quiles 1.2.840.1 [id number] Methodi 00:00:00 00:00:[address] 3.430.2.7 Hospit a .3.897857 l .8 2022-08-06 2022-08-06 Telephone Rosario Yu 1.2.840.1 [id number] Methodi 00:00:00 00:00:[address] 3.430.2.7 Hospit a .3.903160 l .8 2021-09-15 2021-09-15 Outpatient HANNAH QUILES [facility] [id number] [place] 00:00:00 00:00:[address] 2021-08-11 2021-08-11 Emergency X HOLLAND RIFRANCISCA ERT [id number] [facility] 09:22:00 12:14:00 TOBIN yee of [facility] 2021-08-11 2021-08-11 Emergency [place] [facility] 1.2.207.492 [id number] [id number] [facility] 09:22:00 12:14:00 Tobin WATSON 350.1.13.10 i ty [facility] 4.2.7.2.686 [facility] [id number] [place] [address] [place] 2021-08-11 2021-08-11 Orders Doctor LANCE 1.2.840.114 [id number] [facility] 00:00:00 00:00:00 Only Unassigned, ALEX 350.1.13.10 ity of [place] [facility] 4.2.7.2.686 [facility] [id number] [address] 2021-01-10 2021-01-11 Emergency X KELLY, [facility] ERT [id number] [facility] 23:31:00 01:22:00 JHON ity of [facility] 2021-01-10 2021-01-11 Emergency [facility] 1.2.840.114 [id number] Univers 23:31:00 01:22:00 Jhonjaime Watson 350.1.13.10 i ty of [place] 4.2.7.2.686 [facility] [id number] [address] 2019-07-11 2019-07-11 Outpatient HANNAH QUILES [facility] [id number] [place] 00:00:00 00:00:[address] Results Test Description Test Time Test Comments Results Result Comments Source Comprehensive metabolic panel 2022-12-08 22:30:00 Test Item Value Reference Range Interpretation Comme nts Hemolysis (test code = 3440) <15 <=15 Sodium (test code = 2373139) 141 mmol/L 135-145 Potassium (test code = 0997957) 3.6 mmol/L 3.5-5.0 Chloride (test code = 5-0) 102 mmol/L 98-107 CO2 (test code = 2027-) 24 mmol/L 23-32 Glucose (test code = 2345-7) 105 mg/dL 60-100 H BUN (test code = 0863199) 18 mg/dL 7-17 H Creatinine (test code = 5828842) 1.1 mg/dL 0.6-1.0 H eGFR MDRD (test code = 8846) 51.9 See_Comment L If , multiply the GF R by 1.210. [Automated mess age] The system which ge nerated this result transmit uziel reference range: 60.0 - 1 37.0 mL/min/1.73m^2. The reference range was not used to interpret th is result as normal/abnormal . Total bilirubin (test code = 0.2-1.3 1974-04) Alkaline phosphatase (test code 74 U/L 38-126 = 6768-6) Protein (test code = 2885-2) 7.3 g/dL 6.0-8.5 Albumin (test code = 9149057) 4.7 g/dL 3.5-5.0 Calcium (test code = 5200800) 9.9 mg/dL 8.4-10.6 AST (test code = 1920-8) 16 U/L 8-35 ALT (test code = 1742-6) 9 U/L 7-44 Anion gap (test code = 7693404) 18.0 10.0-20.0 BUN/creatinine ratio (test code 17.0 7.0-25.0 = 3097-3) Lab Interpretation (test code = Abnormal 10158-9) [facility] with platelet and jdnutckhdbkc0017-15-35 21:58:00 Test Item Value Reference Range Interpretation Comments WBC (test code = 6690-2) 4.9 10^3/uL 4.0-10.6 RBC (test code = 8644758) 3.78 10^6/uL 4.15-4.90 L HGB (test code = 280) 11.9 g/dL 12.0-16.0 L HCT (test code = 7613467) 34.9 % 37.0-48.0 L MCV (test code = 5358338) 92.3 fL 80.0-98.0 MCH (test code = 7279079) 31.5 pg 28.0-33.0 MCHC (test code = 2149614) 34.1 g/dL 32.0-36.0 RDW (test code = 2973) 12.2 % 10.6-15.4 Platelet count (test code = 325 10^3/uL 150-400 777-3) MPV (test code = 1960218) 8.9 fL 9.4-12.4 L Nucleated RBC (test code = 254) 0.0 % 0.0-1.0 Absolute nRBC (test code = 0.0 10^3/uL 0.0-0.0 2115848) Neutrophils (test code = 49.0 % 45.0-74.0 7623926) Lymphocytes (test code = 736-9) 38.6 % 16.0-45.0 Monocytes (test code = 5905-5) 10.2 % 4.0-10.0 H Eosinophils (test code = 1352) 1.4 % 0.0-5.0 Basophils (test code = 706-2) 0.6 % 0.0-2.0 Immature granulocytes (test code 0.2 % 0.0-1.0 = 1594) Neutrophils, absolute (test code 2.4 10^3/uL 1.6-9.0 = 1801) Lymphocytes, absolute (test code 1.9 10^3/uL 0.4-4.4 = 1298647) Monocytes, absolute (test code = 0.5 10^3/uL 0.2-1.7 6910836) Eosinophils, absolute (test code 0.1 10^3/uL 0.0-1.7 = 1353) Basophils, absolute (test code = 0.0 10^3/uL 0.0-0.3 929) Immature granulocytes, absolute 0.0 10^3/uL 0.0-0.0 (test code = 2839) Lab Interpretation (test code = Abnormal 87039-9) [facility]cc0075-01-09 00:08:00Urine cultureMixed urogenital flora10,000-25,000 colony forming units per mL [facility] Sedimentation lane2587-90-91 21:59:00 Test Item Value Reference Range Interpretation Comments Sedimentation rate (test 36 See_Comment H [A utomated message] code = 03702-7) The system w [facility] generated this result transmitted ref erence range: 0 - 30 m m/hr. The reference r tejas was not used to interpret this result as normal/abnor mal. Lab Interpretation (test Abnormal code = 37799-3) [facility] Center[facility]inalysis, automated with wphnuqnbxe3631-35-91 20:44:00 Test Item Value Reference Range Interpretation Comments Color, UA (test code = Yellow Colorless - Yellow 2064522) Clarity, UA (test code Clear clear = 8862) Specific gravity, UA 1.010-1.030 (test code = 6008107) pH, UA (test code = 5.5 5.0-8.5 8697783) Leukocyte esterase, UA TRACE NEGATIVE (test code = 8778795) Nitrite, UA (test code Negative NEGATIVE = 7668492) Protein, UA (test code NORMAL See_Comment [Aut omated message] = 8865) The system [employer] generated this result transmit uziel reference range : NORMAL, < 30 mg /dL. The reference r tejas was not used to interpret this result as normal/abnormal . Glucose, UA (test code NORMAL See_Comment [Aut omated message] = 8863) The system [employer] generated this result transmit uziel reference range : NORMAL, < 50 mg /dL. The reference r tejas was not used to interpret this result as normal/abnormal . Ketones, UA (test code NORMAL See_Comment [Aut omated message] = 8864) The system [employer] generated this result transmit uziel reference range : NORMAL, < 5 mg/ dL. The reference r tejas was not used to interpret this result as normal/abnormal . Urobilinogen, UA (test NORMAL See_Comment [Aut omated message] code = 5309854) The system [employer] [facility] generated this result transmit uziel reference range : NORMAL, < 1 E.U ./dL. The reference r tejas was not used to interpret this result as normal/abnormal . Bilirubin, UA (test Negative NEGATIVE code = 4965558) Blood, UA (test code = Negative NEGATIVE 8963669) WBC, UA (test code = 3 See_Comment [Autom ated message] 93222-8) The system [facility] [employer] generated this result transmit uziel reference range : 0 - 5 / HPF. The reference range was not used to interpret this result as normal/abnormal . RBC, UA (test code = 2 See_Comment [Autom ated message] 3723671) The system [employer] generated this result transmit uziel reference range : 0 - 5 / HPF. The reference range was not used to interpret this result as normal/abnormal . Bacteria, UA (test code RARE NONE - OCC / HPF = 2968941) Squamous epithelial 8 See_Comment [Automa uziel message] cells, UA (test code = The s ystem which 3009) generated this result transmit uziel reference range : 0 - 16 / LPF. The reference range was not used to interpret this result as normal/abnormal . Non-squamous epithelial 12 See_Comment H [Au tomated message] cells, UA (test code = The s ystem which 8860) generated this result transmit uziel reference range : 0 - 0 / LPF. The reference range was not used to interpret this result as normal/abnormal . Lab Interpretation Abnormal (test code = 16651-3) [facility] with reflex to titer and pattern, immunofluorescence 2022-09-02 17:10:00 Test Item Value Reference Interpretation Comments Range Antinuclear Negative Negative <1:80 Borderline antibodies (KECIA) 1:80 Positi ve >1:80ICAP (test code = nomenclature: A C-0For more 96649-2) information abo ut Hep-2 cell patterns useANApatterns. org, the official websit e for the [facility] on Antinuclear Ant ibody (KECIA) Patterns (ICAP) . DANIEL (test code = Performed at: DANIEL) [facility] [id number] Director: Raghav Govea MD, Phone: [phone] [facility] B surface papfjys5925-99-31 15:04:00 Test Item Value Reference Range Interpretation Comments Hepatitis B surface Ag (test code Nonreactive Non-Reactive = 5196-1) [facility] B core antibody dshcy2465-49-96 15:04:00 Test Item Value Reference Range Interpretation Comments Hepatitis B core total Ab (test Nonreactive Non-Reactive code = 94388-5) [facility] C wavzkzsl8690-64-75 15:04:00 Test Item Value Reference Range Interpretation Comments Hepatitis C Ab (test code = Nonreactive Non-Reactive 02720-7) [facility] CenterVitamin B12 djppr5008-84-49 21:06:00 Test Item Value Reference Range Interpretation Comments Vitamin B12 (test code = 2132-9) 433 pg/mL 250-1000 [facility] CenterT4, mlqd2542-39-82 21:06:00 Test Item Value Reference Range Interpretation Comments T4, free (test code = 3024-7) 1.22 ng/dL 0.74-1.55 [facility] CenterThyroid stimulating zyplsbv3669-17-64 21:06:00 Test Item Value Reference Range Interpretation Comments TSH (test code = 1.64 See_Comment [Automated message] The 9191845) system which ge nerated this result transmit uziel reference range : 0.40 - 4.00 uIU/mL. Th e reference range was not u sed to interpret this result as normal/abnormal . [facility] CenterT3, cwds4987-59-31 21:06:00 Test Item Value Reference Range Interpretation Comments T3, free (test code = 29755-3) 2.3 pg/mL 1.8-4.2 [facility] CenterCreatine kinase, total (CPK)2022-08-31 20:47:00 Test Item Value Reference Range Interpretation Comments Hemolysis (test code = 3440) <15 <=15 Creatine kinase (test code = 2157-6) 25 U/L 30-135 L Lab Interpretation (test code = Abnormal 03296-5) [facility] CenterRheumatoid urmlno7994-13-18 20:46:00 Test Item Value Reference Range Interpretation Comments Rheumatoid factor (test 11.1 See_Comment [Au tomated message] The code = 51907-6) system which generated this result tra nsmitted reference range : <14.0 IU/mL. The refe rence range was not u sed to interpret this result as normal/abnormal . [facility] CenterMagnesium nfhtw8720-82-45 18:27:00 Test Item Value Reference Range Interpretation Comments Magnesium (test code = 81538-6) 1.6 mg/dL 1.6-2.3 [facility] CenterMulcjofaG-QZDPI9652-82-24 16:35:48 Test Item Value Reference Interpretation Comments Range D-DIMER (test code = See_Comment [Autom ated 3880176264) message] The system which generated this result transmitted reference range : <0.41 ?g/mL (FEU). The reference range was not used to interpret this result as normal/abnormal . DANIEL (test code = This test may be DANIEL) used in conjunction with a clinical pretest probability (PTP) assessment model to exclude venous thromboembolism (VTE) in patients suspected of deep venous thrombosis (DVT) and pulmonary embolism (PE) A D-Dimer value less than 0.50 ?g/ml (FEU) has a negative predicative value of 96 to 100% (95% CI)and 97 to 100% (95% CI) as an aid in the diagnosis of deep vein thrombosis (DVT) and pulmonary embolism when there is low or moderate pretest probability of PE or DVT. D-Dimer values are expressed in initial fibrinogen equivalent units (FEU)" The assay results should be used with other information, including the clinical context, in forming a diagnosis. Lab Interpretation Normal (test code = 08706-1) [facility]. METABOLIC PANEL (99764)2021-08-11 16:33:07 Test Item Value Reference Range Interpretation Comments NA (test code = 134 mmol/L 135-145 L 3955661105) K (test code = 4.3 mmol/L 3.5-5.0 8282860181) CL (test code = 95 mmol/L 98-108 L 8869106877) CO2 TOTAL (test code = 26 mmol/L 23-31 6931664047) AGAP (test code = 2-16 0731702672) BUN (test code = 27 mg/dL 7-23 H 0881429383) GLUCOSE (test code = 130 mg/dL 70-110 H 2826666345) CREATININE (test code = 0.96 mg/dL 0.50-1.04 3625058240) TOTAL BILI (test code = 0.8 mg/dL 0.1-1.4 8968868574) CALCIUM (test code = 10.0 mg/dL 8.6-10.6 7917678792) T PROTEIN (test code = 8.1 g/dL 6.3-8.2 1496586712) ALBUMIN (test code = 5.2 g/dL 3.5-5.0 H 6194493800) ALK PHOS (test code = 67 U/L 34-122 4356190188) ALTv (test code = 10 U/L 5-35 1742-6) AST(SGOT) (test code = 24 U/L 13-40 9848299110) eGFR (test code = mL/min/1.73m2 3795856526) DANIEL (test code = DANIEL) Association of Glomerular Filtration Rate (GFR) and Staging of Kidney Disease* + --+ --+ ------+| GFR (mL/min/1.73 m2) ?| With Kidney Damage ?| ?Without Kidney Damage+ --------+ --------+ +| ?>90 ?| ?Stage one ?| ? Normal ?+ ---+ ---+ -------+| ?60-89 ?| ?Stage two ?| ? Decreased GFR ? + --+ --+ ------+| ?30-59 ?| ?Stage three ?| ? Stage three ? + --+ --+ ------+| ?15-29 ?| ?Stage four ? | ? Stage four ?+ ---+ ---+ -------+| ?<15 (or dialysis) ? ?| ?Stage five ? | ? Stage five ?+ ---+ ---+ -------+ *Each stage assumes the associated GFR level has been in effect for at least three months. ?Stages 1 to 5, with or without kidney disease, indicate chronic kidney disease. Notes: Determination of stages one and two (with eGFR >59mL/min/1.73 m2) requires estimation of kidney damage for at least three months as defined by structural or functional abnormalities of the kidney, manifested by either:Pathological abnormalities or Markers of kidney damage (including abnormalities in the composition of the blood or urine or abnormalities in imaging tests). Lab Interpretation Abnormal (test code = 14995-4) [facility] WITH [id number] 16:33:06 Test Item Value Reference Range Interpretation Comments WBC (test code = See_Comment [Automated 0159-2) message] The sy stem which generated this result transmitted reference range : 4.30 - 11.10 10*3/?L. The reference range was not used to interpret this result as normal/abnormal . RBC (test code = See_Comment [Automated 961-8) message] The sy stem which generated this result transmitted reference range : 3.93 - 5.25 10*6/?L. The reference range was not used to interpret this result as normal/abnormal . HGB (test code = 14.4 g/dL 11.6-15.0 718-7) HCT (test code = 41.6 % 35.7-45.2 4544-3) MCV (test code = 87.2 fL 80.6-95.5 787-2) MCH (test code = 30.2 pg 25.9-32.8 785-6) MCHC (test code = 34.6 g/dL 31.6-35.1 786-4) RDW-SD (test code = 37.0 fL 39.0-49.9 L 39840-4) RDW-CV (test code = 11.5 % 12.0-15.5 L 788-0) PLT (test code = See_Comment [Automated 777-3) message] The sy stem which generated this result transmitted reference range : 166 - 358 10*3/ ?L. The reference r tejas was not used to interpret this result as normal/abnormal . MPV (test code = 9.7 fL 9.5-12.9 24075-1) NRBC/100 WBC (test See_Comment [Automat ed code = 7353144907) message] The system which generated this result transmitted reference range : 0.0 - 10.0 /100 WBCs. The refer ence range was not u sed to interpret th is result as normal/abnormal . NRBC x10^3 (test code <0.01 See_Comment [Auto mated = 4983851243) message] The s ystem which generated this result transmitted reference range : 10*3/?L. The reference range was not used to interpret this result as normal/abnormal . GRAN MAT (NEUT) % 52.3 % (test code = 770-8) IMM GRAN % (test code 0.20 % = 9749220077) LYMPH % (test code = 39.7 % 736-9) MONO % (test code = 5.2 % 5905-5) EOS % (test code = 1.8 % 713-8) BASO % (test code = 0.8 % 706-2) GRAN MAT x10^3(ANC) 2.62 10*3/uL 1.88-7.09 (test code = 4403192761) IMM GRAN x10^3 (test <0.03 0.00-0.06 code = 9755440272) LYMPH x10^3 (test code 1.99 10*3/uL 1.32-3.29 = 731-0) MONO x10^3 (test code 0.26 10*3/uL 0.33-0.92 L = 742-7) EOS x10^3 (test code = 0.09 10*3/uL 0.03-0.39 711-2) BASO x10^3 (test code 0.04 10*3/uL 0.01-0.07 = 704-7) Lab Interpretation Abnormal (test code = 83073-7) [facility]
[2023-01-07 21:28] LABS: Absolute Lymphocytes (CBC) 1.7 K/uL (0.7-4.9); Hematocrit 37.2 % (36.0-45.0); MCV 92.6 fL (80-100); Platelets 314 thou/uL (152-406); RBC Red Blood Cell Count 4.02 M/uL (3.86-4.86)
[2023-01-07 21:42] LABS: Potassium 2.8 mEq/L (3.5-5.1); Troponin High Sensitivity 7.9 pg/mL (<58.9)
--- NOTE | 2023-01-07 22:11 | RAD REPORT ---
EXAM DESCRIPTION: RADChest Single View01/07/2023 10:03 pm CLINICAL HISTORY: TRAUMA COMPARISON: Chest Single View dated 09/08/2022 TECHNIQUE: Portable AP view of the chest. FINDINGS: The lungs are clear. No pneumothorax or effusion. The cardiomediastinal contours are unre markable. IMPRESSION: No acute cardiopulmonary process.
--- NOTE | 2023-01-07 22:15 | RAD REPORT ---
EXAM DESCRIPTION: RAD - Femur Left - 01/07/2023 10:04 pm CLINICAL HISTORY: PAIN COMPARISON: No comparisons TECHNIQUE: Left femur, 2 views. FINDINGS: No fracture is identified. Severe hip joint degenerative changes with bone on bone appeara nce superiorly. There is no dislocation or periosteal reaction noted. No acute or suspicious bony fin ding. IMPRESSION: No acute osseus abnormality of the left femur. Severe degenerative changes at the hip elda int as above.
--- NOTE | 2023-01-07 22:16 | RAD REPORT ---
EXAM DESCRIPTION: RAD - Femur Right - 01/07/2023 10:04 pm CLINICAL HISTORY: PAIN COMPARISON: No comparisons TECHNIQUE: Right femur, 2 views. FINDINGS: No fracture is identified. Mild hip joint degenerative changes. There is no dislocation or periosteal reaction noted. Mild knee joint effusion. No acute or suspicious bony finding. IMPRESSION: No acute osseous abnormality. Mild hip joint degenerative changes. Mild knee joint effus ion.
--- NOTE | 2023-01-07 22:28 | RAD REPORT ---
EXAM DESCRIPTION: RAD - Pelvis - 01/07/2023 10:04 pm CLINICAL HISTORY: TRAUMA COMPARISON: No comparisons TECHNIQUE: Single AP view of the pelvis. FINDINGS: The visualized pelvic ring is intact. No suspicious osseous lesions. Severe left and mild right hip degenerative changes. Other pelvic joints are unremarkable. Visualized aspects of the abdom en and soft tissues are unremarkable. IMPRESSION: No acute osseous abnormality of the bony pelvis.
[2023-01-07] MEDS ORDERED: POTASSIUM CL SA 10 MEQ TAB PO ONE (22:33)
--- NOTE | 2023-01-07 23:01 | ER ---
Nurse's Notes [facility] Name: Armida Marie Age: 67 yrs Sex: Female : 1955 Arrival Date: 01/07/2023 Time: 21:00 Bed 9 Private MD: Diagnosis: Osteoarthritis of hip, unspecified;Repeated falls;Weakness Presentation: 01/07 21:09 Chief complaint: Patient states: having left leg pain, dizziness, and chest pain for a km8 few "months" with multiple falls EMS states: pt called for left leg pain after a fall. Coronavirus screen: Client denies travel out of the [place] in the last 14 days. At this time, the client does not indicate any symptoms associated with coronavirus-19. Ebola Screen: No symptoms or risks identified at this time. Initial Sepsis Screen: Does the patient meet any 2 criteria? No. Patient's initial sepsis screen is negative. Does the patient have a suspected source of infection? No. Patient's initial sepsis screen is negative. Risk Assessment: Do you want to hurt yourself or someone else? Patient reports no desire to harm self or others. Onset of symptoms is unknown. 21:09 Method Of Arrival: EMS: [facility] km8 21:09 Acuity: [place] 3 km8 Triage Assessment: 21:12 General: Appears in no apparent distress. comfortable, Behavior is calm, cooperative, km8 appropriate for age, tearful at times. Pain: Complains of pain in mid-sternal area Pain does not radiate. Pain currently is 7 out of 10 on a pain scale. Quality of pain is described as sharp, stabbing, Pain began "months ago" Is intermittent. EENT: No deficits noted. No signs and/or symptoms were reported regarding the EENT system. Neuro: No deficits noted. Cervantes Agitation-Sedation Scale (RASS): 0 - Alert and Calm Level of Consciousness is awake, alert, obeys commands, Oriented to person, place, time, situation. Cardiovascular: Reports chest pain, Capillary refill < 3 seconds Patient's skin is warm and dry. Rhythm is sinus rhythm. Respiratory: No deficits noted. Airway is patent Respiratory effort is even, unlabored, Respiratory pattern is regular, symmetrical. GI: No deficits noted. No signs and/or symptoms were reported involving the gastrointestinal system. : No deficits noted. No signs and/or symptoms were reported regarding the genitourinary system. Derm: No deficits noted. No signs and/or symptoms reported regarding the dermatologic system. Skin is intact, is healthy with good turgor, Skin is dry, Skin is normal, Skin temperature is warm. Musculoskeletal: Range of motion: intact in all extremities, Reports pain in right leg since "for months". Historical: - Allergies: 21:12 No Known Allergies; km8 - Home Meds: 21:12 unknonw arthritis medication [Active]; km8 - PMHx: 21:12 Arthritis; Hypertensive disorder; 8 - PSHx: 21:12 carpal tunnel release bilaterally; km8 - Immunization history:: Adult Immunizations up to date, Client reports receiving the 2nd dose of the Covid vaccine, Flu vaccine is up to date. - Social history:: Smoking status: Patient denies any tobacco usage or history of. Patient/guardian denies using alcohol, street drugs. Screenin:15 [facility] ED Fall Risk Assessment (Adult) History of falling in the last 3 months, 8 including since admission Yes- fall prone (multiple falls) (3 pts) Confusion or Disorientation No (0 pts) Intoxicated or Sedated No (0 pts) Impaired Gait No (0 pts) Mobility Assist Device Used No (0 pt) Altered Elimination No (0 pt) Score/Fall Risk Level 3 or more points = High Risk Oriented to surroundings, Maintained a safe environment, Educated pt \\T\\ family on fall prevention, incl call for assistance when getting out of bed, Assessed \\T\\ reinforced patient's understanding of fall precautions, Provided non-skid footwear, Hourly rounding (assess needs \\T\\ fall precautionary measures) done, Implemented a Fall Risk Plan of Care, Remained w/in arm's length of patient and in sight while toileting, Remained with patient while ambulating. Abuse screen: Denies threats or abuse. Denies injuries from another. Nutritional screening: No deficits noted. Tuberculosis screening: No symptoms or risk factors identified. Assessment: 21:15 Reassessment: see triage notes/assessment. 8 22:00 Reassessment: Patient appears in no apparent distress at this time. Patient is alert, kl oriented x 3, equal unlabored respirations, skin warm/dry/pink. Vital Signs: 21:09 BP 136 / 82; Pulse 88; Resp 15 S; Temp 97.6(O); Pulse Ox 100% on R/A; Weight 63.5 kg km8 (R); Height 5 ft. 5 in. (R); Pain 7/10; 21:30 BP 133 / 67; Pulse 76; Resp 18 S; Temp 99.0(O); Pulse Ox 98% on R/A; km8 21:45 BP 123 / 83; Pulse 72; Resp 16 S; Pulse Ox 99% on R/A; km8 22:00 BP 143 / 85; Pulse 75; Resp 16 S; Pulse Ox 98% on R/A; km8 22:15 BP 128 / 74; Pulse 74; Resp 16 S; Pulse Ox 98% on R/A; km8 23:19 BP 137 / 74; Pulse 66; Resp 16; Pulse Ox 99% on R/A; kl 21:09 Body Mass Index 23.30 (63.50 kg, 165.1 cm) km8 21:09 Pain Scale: Adult [facility] ED Course: 21:08 Patient arrived in ED. mb9 21:09 Alessandro Michel MD is Attending Physician. ec2 21:09 Beverley Gusman, KEYA is Primary Nurse. km8 21:09 EKG done, by ED staff, reviewed by Alessandro Michel MD. Inserted saline lock: 20 gauge in mb9 right antecubital area, using aseptic technique. Blood collected. 21:09 Placed in gown. Bed in low position. Call light in reach. Side rails up X 1. Client mb9 placed on continuous cardiac and pulse oximetry monitoring. NIBP monitoring applied. case monitor on. 21:09 Arm band placed on. mb9 21:11 Triage completed. km8 21:17 Basic Metabolic Panel Sent. km8 21:17 CBC with Diff Sent. km8 21:17 Troponin HS Sent. km8 22:05 XRAY Chest (1 view) In Process Unspecified. EDMS 22:05 Pelvis XRAY In Process Unspecified. EDMS 22:06 Femur Left XRAY In Process Unspecified. EDMS 22:06 Femur Right XRAY In Process Unspecified. EDMS 22:30 No apparent distress. Resting quietly. kl 23:19 No provider procedures requiring assistance completed. IV discontinued, intact, kl bleeding controlled, No redness/swelling at site. Pressure dressing applied. Administered Medications: 22:26 Drug: Potassium Chloride PO 40 mEq PO once Route: PO; km8 Medication: 21:09 VIS not applicable for this client. shawn Outcome: 23:01 Discharge ordered by . jil 23:20 Discharged to home with family, olga 23:20 Condition: stable 23:20 Discharge instructions given to patient, Instructed on discharge instructions, follow up and referral plans. Demonstrated understanding of instructions, follow-up care, 23:20 Patient left the ED. kl Signatures: Dispatcher [employer] Desire Silver RN Sharon Block RN RN mb9 Alessandro Michel MD MD ec2 Marx, Katie, RN RN km8
--- NOTE | 2023-01-07 23:02 | EDPHYS ---
Physician Documentation [facility] Name: Armida Marie Age: 67 yrs Sex: Female : 1955 Arrival Date: 01/07/2023 Time: 21:00 Bed 9 Private MD: ED Physician Alessandro Michel HPI: 01/07 21:12 This 67 yrs old Female presents to ER via EMS with complaints of recurrent ec2 falls, lightheadedness. 21:12 Patient arrives today due to concern for recurrent falls secondary to lightheadedness. ec2 Patient reports that she has been having several months of symptoms. States that she feels generally lightheaded, has issues with ambulation and has been having recurrent falls. Patient reports no significant chest pain or shortness of breath, no abdominal pain, no nausea or vomiting. Patient reports that she has bilateral knee pains. States that she was told that she has arthritis. Patient reports otherwise normal state of health. Reports history of hypertension however was taken off her medications.. Historical: - Allergies: 21:12 No Known Allergies; km8 - Home Meds: 21:12 unknonw arthritis medication [Active]; km8 - PMHx: 21:12 Arthritis; Hypertensive disorder; km8 - PSHx: 21:12 carpal tunnel release bilaterally; km8 - Immunization history:: Adult Immunizations up to date, Client reports receiving the 2nd dose of the Covid vaccine, Flu vaccine is up to date. - Social history:: Smoking status: Patient denies any tobacco usage or history of. Patient/guardian denies using alcohol, street drugs. ROS: 21:12 Constitutional: Lightheadedness and recurrent falls. ec2 Exam: 21:12 Constitutional: GEN: NAD Head: atraumatic Eyes: EOMI Ears: External ears are ec2 normal. CV: regular rate LUNGS: no respiratory distress ABD: non-distended, soft, nontender, no guarding, nonrigid SKIN: no evidence of rashes MSK: no evidence of trauma, bilateral femur and knee tenderness palpation without obvious deformity, good range of motion NEURO: moves all extremities equally Vital Signs: 21:09 BP 136 / 82; Pulse 88; Resp 15 S; Temp 97.6(O); Pulse Ox 100% on R/A; Weight 63.5 kg km8 (R); Height 5 ft. 5 in. (R); Pain 7/10; 21:30 BP 133 / 67; Pulse 76; Resp 18 S; Temp 99.0(O); Pulse Ox 98% on R/A; km8 21:45 BP 123 / 83; Pulse 72; Resp 16 S; Pulse Ox 99% on R/A; km8 22:00 BP 143 / 85; Pulse 75; Resp 16 S; Pulse Ox 98% on R/A; km8 22:15 BP 128 / 74; Pulse 74; Resp 16 S; Pulse Ox 98% on R/A; km8 23:19 BP 137 / 74; Pulse 66; Resp 16; Pulse Ox 99% on R/A; kl 21:09 Body Mass Index 23.30 (63.50 kg, 165.1 cm) km8 21:09 Pain Scale: Adult km8 MDM: 21:00 Patient medically screened. ec2 21:10 ED course: Patient arrives today due to concern for dizziness which she describes as ec2 lightheadedness. Examination remarkable for well-appearing nontoxic dividual with a reassuring examination, bilateral femur tenderness palpation, otherwise well-appearing and in no acute distress. Will obtain lab work, EKG, chest x-ray as well as pelvis and bilateral lower extremity x-rays. Currently considering electrolyte disturbances, anemia, dehydration, bony fracture.. 21:12 ED course: EKG independently reviewed and interpreted by me, shows normal sinus rhythm, ec2 rate of 85, no acute ST segment elevations, intervals are nonconcerning.. 22:00 ED course: Lab work is remarkable for hypokalemia with potassium of 2.8, CBC is ec2 generally reassuring without evidence of anemia, troponin within normal ranges. . 22:36 ED course: Chest x-ray with no acute intrathoracic process, left femur x-ray and right ec2 femur x-ray with degenerative changes noted. . 23:00 Data reviewed: vital signs. ED course: The patient I discussed the results with the ec2 patient and offered inpatient admission given the patient's general weakness and recurrent falls and ultimately patient elected to return to home. We will discharge her home, instructed her she is has a high likelihood of having repeated falls and potential for devastating injury and she expressed understanding of these risks. Will discharge home, return precautions given. I told her if she changes her mind and would like to be admitted for rehabilitation she is always welcome to return.. 01/07 21:12 Order name: Basic Metabolic Panel; Complete Time: 22:44 ec2 01/07 21:12 Order name: CBC with Diff; Complete Time: 21:59 ec2 01/07 21:12 Order name: Troponin HS; Complete Time: 22:44 ec2 01/07 22:33 Order name: Creatine Phosphokinase; Complete Time: 22:44 EDMS 01/07 21:12 Order name: XRAY Chest (1 view); Complete Time: 22:35 ec2 01/07 21:12 Order name: Pelvis XRAY; Complete Time: 22:35 ec2 01/07 21:12 Order name: Femur Left XRAY; Complete Time: 22:35 ec2 01/07 21:12 Order name: Femur Right XRAY; Complete Time: 22:35 ec2 01/07 21:12 Order name: EKG; Complete Time: 21:12 ec2 01/07 21:12 Order name: Cardiac monitoring; Complete Time: 21:12 ec2 01/07 21:12 Order name: EKG - Nurse/Tech; Complete Time: 21:12 ec2 01/07 21:12 Order name: IV Saline Lock; Complete Time: 21:12 ec2 01/07 21:12 Order name: Labs collected and sent; Complete Time: 21:12 ec2 01/07 21:12 Order name: O2 Per Protocol; Complete Time: 21:12 ec2 01/07 21:12 Order name: O2 Sat Monitoring; Complete Time: 21:12 ec2 Administered Medications: 22:26 Drug: Potassium Chloride PO 40 mEq PO once Route: PO; km8 Disposition Summary: 01/07/23 23:01 Discharge Ordered Notes: Location: Home ec2 Condition: Stable ec2 Diagnosis - Osteoarthritis of hip, unspecified ec2 - Repeated falls ec2 - Weakness ec2 Discharge Instructions: - Discharge Summary Sheet ec2 - Arthritis ec2 - Fall Prevention in the Home, Adult ec2 Forms: - Medication Reconciliation Form ec2 - Thank You Letter ec2 - Antibiotic Education ec2 - Prescription Opioid Use ec2 - Patient Portal Instructions ec2 - Leadership Thank You Letter ec2 Signatures: Dispatcher [employer] Alessandro Bonner MD MD ec2 Beverley Gusman RN RN km8 Corrections: (The following items were deleted from the chart) 21: 21:09 Patient medically screened. ec2 ec2 22: 21:12 Knee Left 2 View+RAD.RAD.BRZ ordered. EDMS EDMS 22: 21:12 Knee Right 2 View+RAD.RAD.BRZ ordered. EDMS EDMS 22: 21:19 CREATINE PHOSPHOKINASE+C.LAB.BRZ ordered. EDMS EDMS
[2023-01-07 23:44] VITALS: TEMP 99
[2023-01-07 23:49] VITALS: BP 137/74; O2SAT 99
== END 2023-01-07 23:20 | disposition home or self-care (01) ==
LOC: ER 21:00
DX: R53.1 Weakness (principal); R29.6 Repeated falls; M16.0 Bilateral primary osteoarthritis of hip; I10 Essential (primary) hypertension
CPT/HCPCS: 36415; 71045; 72170; 80048; 82550; 84484; 85025; 99285

== ENCOUNTER 2023-12-19 18:11 | Inpatient (IN) | payer BC, OTHER ==
[2023-12-19] MEDS ORDERED: NA CHLORIDE 0.9% 500 ML ONE (19:07)
[2023-12-19 19:19] LABS: Absolute Basophils 0.1 K/uL (0-0.5); Absolute Eosinophils 0.2 K/uL (0-0.5); Absolute Lymphocytes (CBC) 2.3 K/uL (0.7-4.9); Absolute Monocytes 0.6 K/uL (0.1-1.3); Absolute Neutrophil 4.7 K/uL (1.8-8.0); Basophils % 0.8 % (0-1.3); Eosinophils % 2.3 % (0-4.4); Hematocrit 26.4 % (36.0-45.0); Hemoglobin 8.6 g/dL (12.0-15.0); Lymphocytes % 29.5 % (15.3-44.8); MCH 30.6 pg (27.0-35.0); MCHC 32.5 g/dL (32.0-36.0); MCV 94.1 fL (80-100); Monocytes % 7.9 % (3.3-12.3); Neutrophils % 59.5 % (41.7-73.7); Platelets 286 thou/uL (152-406); Red Cell Distribution Width 13.1 % (12.1-15.2)
[2023-12-19 19:25] LABS: PT Prothrombin Time 11.4 SECONDS (9.4-12.5); PTT, Activated Partial Thromb 25.8 SECONDS (24.3-36.9); Protime INR 1.02
[2023-12-19 19:37] LABS: ALT/SGPT 17 U/L (13-56); AST/SGOT 14 U/L (15-37); Albumin 3.4 g/dL (3.4-5.0); Albumin/Globulin Ratio 1.1 (1.1-1.8); Alkaline Phosphatase 71 U/L (45-117); BUN Blood Urea Nitrogen 35 mg/dL (7-18); Bicarbonate 26 mEq/L (21-32); Bilirubin Total 0.2 mg/dL (0.2-1.0); Globulin 3.1 g/dL (2.3-3.5); Glomerular Filtration Rate 32 ml/min (=/>90); Glucose Level 96 mg/dL (74-106); Magnesium 1.6 mg/dL (1.6-2.4); Protein, Total 6.5 g/dL (6.4-8.2); Sodium Level 134 mEq/L (136-145); Troponin High Sensitivity 4.5 pg/mL (<58.9)
[2023-12-19 19:39] LABS: Bilirubin Direct < 0.2 mg/dL (0-0.2)
--- NOTE | 2023-12-19 20:36 | RAD REPORT ---
EXAMINATION: CT HEAD WITHOUT CONTRAST CT CERVICAL SPINE WITHOUT CONTRAST CLINICAL INDICATION: Head and neck injury status post fall. Head and neck pain TECHNIQUE: Axial CT images from the skull base to the vertex without intravenous contrast. Axial CT i mages through the cervical spine were obtained without intravenous contrast. Sagittal and coronal reformatted images were created from the data set. Coronal and sagittal reformatted images were creat ed from the data set. One or more of the following dose reduction techniques were used: Automated exposure control, adjustment of the mA and/or kV according to patient size, and/or iterative reconstr uction. Unless otherwise specified, incidental findings do not require dedicated imaging follow-up. [id number]. Comparison: Head CT 2022 FINDINGS: Intracranial bleed not noted. Ventricles are normal in caliber. No significant hypodensity within the brain No extra-axial fluid collection. No fluid within the sinuses/mastoids No fracture or dislocation is seen involving the cervical spine. Mild posterior subluxation C3 on C4. Slight posterior subluxation C5 on C6 and C6 on C7. Mild anterio r subluxation C7 on T1. Spondylosis involves the cervical spine IMPRESSION: No acute intracranial abnormality noted A cervical fracture is not seen. 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
--- NOTE | 2023-12-19 20:50 | RAD REPORT ---
EXAM: CT CHEST, ABDOMEN AND PELVIS WITHOUT CONTRAST CLINICAL INDICATION: Chest and abdominal pain. Fall TECHNIQUE: CT chest, abdomen and pelvis was performed, without IV contrast, as per department protoco l. Axial, sagittal and coronal reconstructions were obtained. One or more of the following dose reduction techniques were used: Automated exposure control, adjustment of the mA and/or kV according to the patient size, and/or iterative reconstruction. Unless otherwise specified, incidental findings do not require dedicated imaging follow-up. COMPARISON: No prior exam. FINDINGS: The lack of intravenous contrast limits the sensitivity of this exam for evaluation of solid visceral organs, vascular structures, and retroperitoneum. A mediastinal hematoma is not present. No pleural effusion. No pericardial effusion. Mild patchy alveolar opacities left lower lobe. Several subacute nondisplaced right rib fractures. Liver, spleen, pancreas, adrenals kidneys and bladder do not demonstrate a gross traumatic injury. Bladder is distended Marked osteoarthritis left hip IMPRESSION: Mild left lower lobe alveolar opacities probably pneumonia or pneumonitis. A contusion can have this appearance but is considered less likely. No acute traumatic injury involving the abdomen/pelvis seen
--- NOTE | 2023-12-19 20:52 | RAD REPORT ---
Exam: Left femur Clinical history leg pain FINDINGS: Marked osteoarthritis left hip. No fracture or dislocation seen.
--- NOTE | 2023-12-19 20:53 | RAD REPORT ---
Procedure: Chest Single View History: Chest pain Comparison: 2022 The lungs appear clear of acute infiltrate. No significant pleural effusion noted. The heart is normal size. IMPRESSION: No acute abnormality is displayed.
[2023-12-19 21:53] LABS: Specific Gravity 1.009 (1.005-1.030); Sqamous Epithelial <5 /HPF (None Seen); Urine Bacteria <20 /HPF (<20); Urine Bilirubin NEGATIVE (Negative); Urine Blood Negative (Negative); Urine Clarity Clear (Clear); Urine Color Colorless (Yellow); Urine Crystals Unidentified Few /HPF (None Seen); Urine Culture Reflex Order NOT NEEDED; Urine Glucose NEGATIVE (Negative); Urine Ketones NEGATIVE (Negative); Urine Microscopic Reflex YN ORDER UMIC; Urine Nitrite NEGATIVE (Negative); Urine Protein NEGATIVE (Negative); Urine RBC <5 /HPF (None Seen); Urine Urobilinogen Normal (Normal); Urine WBC <5 /HPF (<5)
[2023-12-19] MEDS ORDERED: CEFTRIAXONE 2000 MG/VIAL ONE (22:11)
[2023-12-19] MEDS ORDERED: MORPHINE 2 MG/ML SYR ONE (22:11)
[2023-12-19] MEDS ORDERED: NA CHLORIDE 0.9% 50 ML ONE (22:11)
--- NOTE | 2023-12-19 22:15 | EDPHYS ---
Physician Documentation [facility] Name: Armida Marie Age: 68 yrs Sex: Female : 1955 Arrival Date: 12/19/2023 Time: 18:11 Bed 26 Private MD: ED Physician Marcial Rubio HPI: 12/18 18:31 This 68 yrs old Female presents to ER via Unassigned with complaints of falls, weakness.rn 18:31 Patient reports recurrent falls lately, unknown reason, has seen her PCP and recently rn taken off of carvedilol, does not feel like this made a difference. Patient reports falls over the last month or so. Fell today, reports pain to left knee and left hip. Also has skin tear to the left wrist. Not sure if she hit her head. Denies LOC. No chest pain or shortness of breath.. Onset: The symptoms/episode began/occurred today. Severity of symptoms: At their worst the symptoms were mild in the emergency department the symptoms are unchanged. The patient has experienced similar episodes in the past. Historical: - Allergies: 18:31 No Known Allergies; jb4 - PMHx: 18:31 Arthritis; Hypertensive disorder; jb4 - PSHx: 18:31 carpal tunnel release bilaterally; jb4 - Family history:: not pertinent. - Hospitalizations: : No recent hospitalization is reported. ROS: 18:31 Constitutional: Negative for fever, chills, and weight loss, Neck: Negative for injury, rn pain, and swelling, Cardiovascular: Negative for chest pain, palpitations, and edema, Respiratory: Negative for shortness of breath, cough, wheezing, and pleuritic chest pain, Abdomen/GI: Negative for nausea, vomiting, diarrhea, and constipation, Back: Negative for injury and pain, : Negative for injury, bleeding, discharge, and swelling, MS/Extremity: Negative for injury and deformity, Skin: Positive for skin tear to left wrist Neuro: Positive for generalized weakness Exam: 18:31 Constitutional: This is a well developed, well nourished patient who is awake, alert, rn and in no acute distress. Head/Face: Normocephalic, atraumatic. ENT: Dry mucous membranes Neck: No midline cervical tenderness Cardiovascular: Regular rate and rhythm. No pulse deficits. Respiratory: No increased work of breathing, no retractions or nasal flaring. Abdomen/GI: Soft, tenderness right lower and suprapubic regions. No peritoneal signs Skin: Warm, dry, superficial chevron shaped skin tear left wrist/base of hand, no foreign body, very thin skin, no active bleeding MS/ Extremity: Pulses equal, no cyanosis. Painful range of motion left knee and left hip. No gross deformity. Neuro: Awake and alert, GCS 15, oriented to person, place, time, and situation. Cranial nerves II-XII grossly intact. Motor strength 4/5 in all extremities. Sensory grossly intact. 19:28 ECG was reviewed by the Attending Physician. rn Vital Signs: 18:50 BP 130 / 87; Pulse 66; Resp 16; Temp 98.6; Pulse Ox 97% ; Weight 56.7 kg; Height 5 ft. jb4 5 in. ; 20:26 BP 158 / 70; Pulse 73; Resp 14; Pulse Ox 100% on R/A; jb4 22:47 BP 129 / 63; Pulse 80; Resp 16; Temp 97.6(O); Pulse Ox 100% on R/A; jb4 18:50 Body Mass Index 20.80 (56.70 kg, 165.1 cm) jb4 MDM: 18:20 Patient medically screened. rn 12/19 01:10 Differential Diagnosis Fall, dehydration, left eye disturbance, pneumonia. Data rt reviewed: vital signs, nurses notes, lab test result(s), EKG, radiologic studies. Consideration of Admission/Observation Patient was admitted/placed on observation. Management of patient was discussed with the following: Hospitalist: Agrees to admit. I considered the following discharge prescriptions or medication management in the emergency department Medications were administered in the Emergency Department. See MAR. Independent interpretation of the following test(s) in the Emergency Department CT Scan: My interpretation is No pneumothorax seen on my interpretation of CT scan images. Care significantly affected by the following chronic conditions: Hypertension. Counseling: I had a detailed discussion with the patient and/or guardian regarding the historical points, exam findings, and any diagnostic results supporting the discharge/admit diagnosis, lab results, radiology results, the need for further work-up and treatment in the hospital. Response to treatment: the patient's symptoms have mildly improved after treatment. 12/18 18:21 Order name: Basic Metabolic Panel; Complete Time: 19:50 rn 12/18 18:21 Order name: CBC with Diff; Complete Time: 19:50 rn 12/18 18:21 Order name: Hepatic Function; Complete Time: 19:50 rn 12/18 18:21 Order name: Magnesium; Complete Time: 19:50 rn 12/18 18:21 Order name: Protime (+inr); Complete Time: 19:50 rn 12/18 18:21 Order name: Ptt, Activated; Complete Time: 19:50 rn 12/18 18:21 Order name: Troponin High Sensitivity; Complete Time: 19:50 rn 12/18 18:21 Order name: Urinalysis w/ reflexes; Complete Time: 21:55 rn 12/18 22:31 Order name: Urinalysis w/ reflexes EDMS 12/18 22:31 Order name: CBC with Automated Diff EDMS 12/18 22:31 Order name: CBC with Automated Diff EDMS 12/18 22:31 Order name: Comprehensive Metabolic Panel EDMS 12/18 22:31 Order name: Comprehensive Metabolic Panel EDMS 12/18 18:21 Order name: Chest Single View XRAY; Complete Time: 20:56 rn 12/18 18:22 Order name: XRAY Femur LEFT; Complete Time: 20:56 rn 12/18 18:34 Order name: CT Head C Spine; Complete Time: 20:56 rn 12/18 19:55 Order name: Chest Abd Pelvis Wo Con; Complete Time: 20:56 EDMS 12/18 18:21 Order name: Cardiac monitoring; Complete Time: 19:17 rn 12/18 18:21 Order name: EKG - Nurse/Tech; Complete Time: 19:17 rn 12/18 18:21 Order name: IV Saline Lock; Complete Time: 19:17 rn 12/18 18:21 Order name: Labs collected and sent; Complete Time: 21:43 rn 12/18 18:21 Order name: O2 Per Protocol; Complete Time: 18:50 rn 12/18 18:21 Order name: O2 Sat Monitoring; Complete Time: 18:50 rn 12/18 18:27 Order name: Wound Care; Complete Time: 21:43 rn 12/18 18:27 Order name: Wound dressing: steri-strips; Complete Time: 21:43 rn EC/30 19:28 Rate is 69 beats/min. Rhythm is regular. QRS [facility] [facility] is Normal. [place] interval is normal. QRS rn interval is normal. QT interval is normal. No Q waves. T waves are Normal. No ST changes noted. Clinical impression: NSR w/ Non-specific ST/T Changes. Interpreted by me. Reviewed by me. Administered Medications: 19:17 Drug: NS 0.9% IV 500 ml IV at bolus once Route: IV; Rate: bolus; Site: right forearm; jb4 22:19 Drug: morphine IVP or IV 2 mg IVP once over 4 mins Route: IVP; Infused Over: 4 mins; jb4 Site: right antecubital; 22:19 Drug: Rocephin IV 2 grams IV at calculated rate once; Given slow IV push per [employer] jb4 instructions {Note: administered in 50ml NS.} Route: IV; Rate: calculated rate; Site: right antecubital; 22:42 Drug: AZITHromycin IVPB 500 mg IVPB once over 1 hrs; (mix in 250 mL NS) Route: IVPB; jb4 Infused Over: 1 hrs; Site: right antecubital; 22:42 Drug: NS 0.9% IV 1000 ml IV at 1 bolus Per protocol; 1000 mL bolus Route: IV; Rate: 1 jb4 bolus; Site: right antecubital; Disposition Summary: 12/19/23 22:15 Hospitalization Ordered Notes: Hospitalization Status: Inpatient Admission rt Provider: Sedrick Garcia rt Location: [facility] (Inpatient) rt Condition: Stable rt Problem: new rt Symptoms: are unchanged rt Bed/Room Type: Standard rt Room Assignment: 214(12/19/23 22:43) rv1 Diagnosis - Generalized weakness rt - Frequent falls rt - Acute kidney injury rt - Community-acquired pneumonia rt Forms: - Medication Reconciliation Form rt - SBAR form rt - Leadership Thank You Letter rt Signatures: Dispatcher [employer] EDMS Sawyer Barton MD MD rn Bryson, James, RN RN jb4 Marcial Rubio MD MD rt Sariah Cook rv1 Corrections: (The following items were deleted from the chart) 18:21 18:21 BASIC METABOLIC PANEL+C.LAB.BRZ ordered. EDMS EDMS 18:21 18:21 CBC+H.LAB.BRZ ordered. EDMS EDMS 18:21 18:21 HEPATIC FUNCTION+C.LAB.BRZ ordered. EDMS EDMS 18:21 18:21 MAGNESIUM+C.LAB.BRZ ordered. EDMS EDMS 18:21 18:21 PROTIME (+INR)+COAG.LAB.BRZ ordered. EDMS EDMS 18:21 18:21 PTT, ACTIVATED+COAG.LAB.BRZ ordered. EDMS EDMS 18:21 18:21 Troponin High Sensitivity+C.LAB.BRZ ordered. EDMS EDMS 18:21 18:21 Urinalysis+U.LAB.BRZ ordered. EDMS EDMS 18:22 18:22 Head Brain Wo Cont+CT.RAD.BRZ ordered. EDMS EDMS 18:22 18:22 Chest Single View+RAD.RAD.BRZ ordered. EDMS EDMS 19:01 18:28 Abdomen Pelvis W Con+CT.RAD.BRZ ordered. EDMS EDMS 19:15 18:22 Hip Left 2 View+RAD.RAD.BRZ ordered. EDMS EDMS 19:15 18:22 Knee Left 3 View+RAD.RAD.BRZ ordered. EDMS EDMS 19:55 18:35 Chest Abdomen Pelvis W Con+CT.RAD.BRZ ordered. EDMS EDMS 22:43 22:15 rt rv1
--- NOTE | 2023-12-19 22:15 | ER ---
Nurse's Notes [facility] Name: Armida Marie Age: 68 yrs Sex: Female : 1955 Arrival Date: 12/19/2023 Time: 18:11 Bed 26 Private MD: Diagnosis: Generalized weakness;Frequent falls;Acute kidney injury;Community-acquired pneumonia Presentation: 12/18 18:29 Chief complaint: EMS states: [facility] and momentarily thought she jb4 was in the ER. She fell backwards onto her bottom, has been complaining of weakness and falling for the past few days. Reports pain to her bottom. Coronavirus screen: At this time, the client does not indicate any symptoms associated with coronavirus-19. Ebola Screen: No symptoms or risks identified at this time. Initial Sepsis Screen: Does the patient meet any 2 criteria? No. Patient's initial sepsis screen is negative. Does the patient have a suspected source of infection? No. Patient's initial sepsis screen is negative. Risk Assessment: Do you want to hurt yourself or someone else? Patient reports no desire to harm self or others. Onset of symptoms was December 17, 2023. Transition of care: patient was not received from another setting of care. 18:29 Method Of Arrival: EMS: [facility] jb4 18:29 Acuity: [place] jb4 Historical: - Allergies: 18:31 No Known Allergies; jb4 - PMHx: 18:31 Arthritis; Hypertensive disorder; jb4 - PSHx: 18:31 carpal tunnel release bilaterally; jb4 - Family history:: not pertinent. - Hospitalizations: : No recent hospitalization is reported. Screenin/01 00:05 [facility] ED Fall Risk Assessment (Adult) History of falling in the last 3 months, jb4 including since admission Yes- single mechanical fall (1 pt) Confusion or Disorientation Yes (5 pts) Intoxicated or Sedated No (0 pts) Impaired Gait Yes (1 pt) Mobility Assist Device Used No (0 pt) Altered Elimination Yes (1 pt) Score/Fall Risk Level 3 or more points = High Risk Oriented to surroundings, Maintained a safe environment. Abuse screen: Denies threats or abuse. Nutritional screening: No deficits noted. Tuberculosis screening: No symptoms or risk factors identified. Assessment: 12/18 18:50 General: Behavior is calm, cooperative, appropriate for age. Pain: Complains of pain in jb4 left leg Pain does not radiate. Pain currently is 6 out of 10 on a pain scale. Neuro: Level of Consciousness is awake, alert, obeys commands, Oriented to person, place, situation, Pt has intermittent confusion. Forgets Time and Situation.. Cardiovascular: Patient's skin is warm and dry. Respiratory: Airway is patent Respiratory effort is even, unlabored, Respiratory pattern is regular, symmetrical. GI: No signs and/or symptoms were reported involving the gastrointestinal system. : No signs and/or symptoms were reported regarding the genitourinary system. EENT: No signs and/or symptoms were reported regarding the EENT system. Derm: Skin is intact, Skin is pink, warm \T\ dry. Musculoskeletal: Circulation, motion, and sensation intact. Range of motion: intact in all extremities. 20:25 Reassessment: Patient appears in no apparent distress at this time. Patient and/or jb4 family updated on plan of care and expected duration. Pain level reassessed. Patient is alert, oriented x 3, equal unlabored respirations, skin warm/dry/pink. Pt back from CT. 22:20 Reassessment: Pt continues to have intermittent confusion. Is A\T\Ox2-x3. jb4 23:30 Reassessment: Patient appears in no apparent distress at this time. Patient and/or jb4 family updated on plan of care and expected duration. Pain level reassessed. Patient is alert, oriented x 3, equal unlabored respirations, skin warm/dry/pink. 12/19 00:05 Reassessment: Patient appears in no apparent distress at this time. Patient and/or jb4 family updated on plan of care and expected duration. Pain level reassessed. Patient is alert, oriented x 3, equal unlabored respirations, skin warm/dry/pink. brief changed. Vital Signs: 12/18 18:50 BP 130 / 87; Pulse 66; Resp 16; Temp 98.6; Pulse Ox 97% ; Weight 56.7 kg; Height 5 ft. jb4 5 in. ; 20:26 BP 158 / 70; Pulse 73; Resp 14; Pulse Ox 100% on R/A; jb4 22:47 BP 129 / 63; Pulse 80; Resp 16; Temp 97.6(O); Pulse Ox 100% on R/A; jb4 18:50 Body Mass Index 20.80 (56.70 kg, 165.1 cm) jb4 ED Course: 18:13 Patient arrived in ED. jb4 18:20 Sawyer Barton MD is Attending Physician. rn 18:29 Shaka Agustin, KEYA is Primary Nurse. jb4 18:31 Triage completed. jb4 19:15 Chest Single View XRAY In Process Unspecified. EDMS 19:15 XRAY Femur LEFT In Process Unspecified. EDMS 19:17 Ptt, Activated Sent. jb4 19:18 Troponin High Sensitivity Sent. jb4 19:18 Protime (+inr) Sent. jb4 19:18 Magnesium Sent. jb4 19:18 Hepatic Function Sent. jb4 19:18 CBC with Diff Sent. jb4 19:18 Basic Metabolic Panel Sent. jb4 20:03 Attending Physician role handed off by Sawyer Barton MD rt 20:03 Marcial Rubio MD is Attending Physician. rt 20:20 CT Head C Spine In Process Unspecified. EDMS 20:20 Chest Abd Pelvis Wo Con In Process Unspecified. EDMS 22:14 Sedrick Garcia MD is Hospitalizing Provider. rt 10 00:05 No provider procedures requiring assistance completed. IV discontinued, intact, jb4 bleeding controlled, No redness/swelling at site. Pressure dressing applied. 00:05 Patient has correct armband on for positive identification. Bed in low position. Call jb4 light in reach. Side rails up X 1. Provided Education on: reason for admit.. Administered Medications: 12/18 19:17 Drug: NS 0.9% IV 500 ml IV at bolus once Route: IV; Rate: bolus; Site: right forearm; jb4 22:19 Drug: morphine IVP or IV 2 mg IVP once over 4 mins Route: IVP; Infused Over: 4 mins; jb4 Site: right antecubital; 22:19 Drug: Rocephin IV 2 grams IV at calculated rate once; Given slow IV push per pharmarcy jb4 instructions {Note: administered in 50ml NS.} Route: IV; Rate: calculated rate; Site: right antecubital; 22:42 Drug: AZITHromycin IVPB 500 mg IVPB once over 1 hrs; (mix in 250 mL NS) Route: IVPB; jb4 Infused Over: 1 hrs; Site: right antecubital; 22:42 Drug: NS 0.9% IV 1000 ml IV at 1 bolus Per protocol; 1000 mL bolus Route: IV; Rate: 1 jb4 bolus; Site: right antecubital; Outcome: 22:15 Decision to Hospitalize by Provider. rt 12/19 00:05 Admitted to Med/surg accompanied by tech, via stretcher, room 214, with chart, jb4 Condition: stable Discharge instructions given to patient, Instructed on the need for admit, Demonstrated understanding of instructions, 00:07 Patient left the ED. jb4 Signatures: Dispatcher [employer] EDMS Sawyer Barton MD MD rn Bryson, James, RN RN jb4 Marcial Rubio MD MD rt Corrections: (The following items were deleted from the chart) 12/18 22:43 18:50 BP 130 / 87; Pulse 66bpm; Resp 16bpm; Pulse Ox 97%; 56.7 kg; Height 5 ft. 5 in.; jb4 BMI: 20.8; jb4 22:47 18:50 BP 129 / 63; Pulse 80bpm; Resp 16bpm; Pulse Ox 100% RA; Temp 97.6F Oral; jb4 jb4
[2023-12-19] MEDS ORDERED: ONDANSETRON 4 MG/2 ML VIAL IV PRN (22:27)
[2023-12-19] MEDS ORDERED: ACETAMINOPHEN 325 MG TABLET PO PRN (22:27)
--- NOTE | 2023-12-19 22:31 | P.HP ---
Certification for Inpatient Patient admitted to: Inpatient With expected LOS: >2 Midnights Practitioner: I am a practitioner with admitting privileges, knowledge of patient current condition, hospital course, and medical plan of care. Services: Services provided to patient in accordance with Admission requirements found in Title 42 Section 412.3 of the Code of Federal Regulations Patient History Date of Service: 12/20/23 Reason for admission: Generalized weakness History of Present Illness: 68 yrs old Female with past medical history of hypertension, arthritis, history of carpal tunnel syndrome brought to ER with generalized weakness and multiple falls. Patient had recurrent falls lately without much reason. Denies any presyncope. Denies any chest pain. Denies shortness of breath. No nausea vomiting or diarrhea. No sick contacts Patient was assessed in the ER and was admitted for further management of Left lower lobe pneumonia and acute kidney injury Allergies No Known Allergies Allergy (Unverified 12/19/23 22:56) - Past Medical/Surgical History Past Medical History: Reviewed- Non-Contributory -: Hypertension Past Surgical History: Reviewed- Non-Contributory - Family History Family History: Reviewed- Non-Contributory - Social History Smoking Status: Never smoker Review of Systems 10-point ROS is otherwise unremarkable Physical Examination - Vital Signs Temperature: 98.6 F Blood Pressure: 130/86 Pulse: 66 Respirations: 18 Pulse Ox (%): 94 - Physical Exam General: Alert, In no apparent distress, Oriented x3 HEENT: Atraumatic, Normocephalic Neck: Supple Respiratory: Clear to auscultation bilaterally, Normal air movement Cardiovascular: Normal pulses, Regular rate/rhythm, Normal S1 S2 Capillary refill: <2 Seconds Gastrointestinal: Soft and benign, W/out hepatosplenomegaly Musculoskeletal: No clubbing, No swelling Integumentary: No rashes, No breakdown Neurological: Normal speech, Normal strength at 5/5 x4 extr, Cranial nerves 3-12 intact Lymphatics: No axilla or inguinal lymphadenopathy - Studies Laboratory Data (last 24 hrs) 12/19/23 12/19/23 12/19/23 19:03 19:03 19:03 WBC 7.90 Hgb 8.6 L Hct 26.4 L Plt Count 286 PT 11.4 INR 1.02 APTT 25.8 Sodium 134 L Potassium 5.0 BUN 35 H Creatinine 1.72 H Glucose 96 Magnesium 1.6 Total Bilirubin 0.2 AST 14 L ALT 17 Alkaline Phosphatase 71 Assessment and Plan - Plan Left lower lobe pneumonia Started on IV antibiotics Monitor closely on telemetry Blood cultures Change antibiotic as per sensitivity Hypertension Antihypertensives titrated Continue home medications and titrate as needed Acute kidney injury Possibly due to dehydration Started on IV hydration Monitor renal parameters Electrolytes monitor and replace accordingly Anemia of chronic disease Monitor H&H closely No overt bleeding at this time Generalized weakness PT evaluation GI/DVT prophylaxis Advanced directive full code Discharge Plan: Home Plan to discharge in: 48 Hours - Advance Directives Does patient have a Living Will: No Does patient have a Durable POA for Healthcare: No - Code Status/Comfort Care Code Status: Full Code Time Spent Managing Pts Care (In Minutes): 48
[2023-12-19] MEDS ORDERED: AZITHROMYCIN 500 MG INJ IVPB ONE (22:32)
[2023-12-19] MEDS ORDERED: NA CHLORIDE 0.9% 1,000 ML ONE (22:33)
[2023-12-19] MEDS ORDERED: NA CHLORIDE 0.9% 250 ML ONE (22:33)
[2023-12-20 00:47] VITALS: O2SAT 100
[2023-12-20] MEDS: HYDROCODONE/APAP 5/325 MG TAB PO PRN (01:18)
[2023-12-20] MEDS: NA CHLORIDE 0.9% 1,000 ML IV SCH (01:18)
[2023-12-20] MEDS: MORPHINE 2 MG/ML SYR IV PRN (03:45)
[2023-12-20 04:35] LABS: Absolute Eosinophils 0.1 K/uL (0-0.5); Absolute Lymphocytes (CBC) 2.4 K/uL (0.7-4.9); Absolute Monocytes 0.7 K/uL (0.1-1.3); Absolute Neutrophil 3.4 K/uL (1.8-8.0); Basophils % 0.7 % (0-1.3); Hematocrit 24.1 % (36.0-45.0); Hemoglobin 7.9 g/dL (12.0-15.0); MCHC 32.9 g/dL (32.0-36.0); MCV 94.2 fL (80-100); Monocytes % 10.3 % (3.3-12.3); Platelets 261 thou/uL (152-406); RBC Red Blood Cell Count 2.56 M/uL (3.86-4.86); Red Cell Distribution Width 13.1 % (12.1-15.2)
[2023-12-20 04:52] LABS: AST/SGOT 13 U/L (15-37); Albumin 2.6 g/dL (3.4-5.0); Alkaline Phosphatase 63 U/L (45-117); Anion Gap 5.3 mEq/L (5.0-15.0); BUN Blood Urea Nitrogen 29 mg/dL (7-18); Bicarbonate 28 mEq/L (21-32); Bilirubin Total 0.2 mg/dL (0.2-1.0); Globulin 2.6 g/dL (2.3-3.5); Glomerular Filtration Rate 45 ml/min (=/>90); Glucose Level 103 mg/dL (74-106); Potassium 4.3 mEq/L (3.5-5.1); Protein, Total 5.2 g/dL (6.4-8.2); Sodium Level 141 mEq/L (136-145)
[2023-12-20 04:54] LABS: ALT/SGPT < 14 U/L (13-56)
[2023-12-20] MEDS: MAGNESIUM SULFATE 1 gm IVPB 1 GM/100 ML BAG IV ONE (05:53)
--- NOTE | 2023-12-20 07:44 | P.PN ---
Date of Service: 12/20/23 subjective Admitted for syncopal, episode, falls, pneumonia Review of Systems 10-point ROS is otherwise unremarkable Physical Examination - Vital Signs Reviewed - Physical Exam General: Alert, In no apparent distress, Oriented x3 HEENT: Atraumatic, Normocephalic Neck: Supple Respiratory: Diminished, unlabored Cardiovascular: Normal pulses, Regular rate/rhythm, Normal S1 S2 Capillary refill: <2 Seconds Gastrointestinal: Soft and benign, W/out hepatosplenomegaly Musculoskeletal: No clubbing, No swelling Integumentary: No rashes, No breakdown Neurological: Normal speech, Normal strength at 5/5 x4 extr, Cranial nerves 3-12 intact Lymphatics: No axilla or inguinal lymphadenopathy Assessment and Plan - Plan acute hypoxic respiratory failure secondary to left lower lobe pneumonia lobe pneumonia Started on IV antibiotics Monitor closely on telemetry Blood cultures Change antibiotic as per sensitivity Hypertension Antihypertensives titrated Continue home medications and titrate as needed Acute kidney injury Possibly due to dehydration Started on IV hydration Monitor renal parameters Electrolytes monitor and replace accordingly Anemia of chronic disease Monitor H&H closely No overt bleeding at this time Generalized weakness Fall PT evaluation GI/DVT prophylaxis Advanced directive full code Discharge Plan: Home Plan to discharge in: 48 Hours - Advance Directives Does patient have a Living Will: No Does patient have a Durable POA for Healthcare: No - Code Status/Comfort Care Code Status: Full Code Time Spent Managing Pts Care (In Minutes): 35 <Joann Martel - Last Filed: 12/25/23 05:53> Patient was seen and examined. Events of the last 24 hours have been noted. Spoke with with LOAN regarding patient's clinical picture after evaluating and examining the patient independently. I performed a substantial part of the MDM during this patient's care today. I personally made or approved the documented management plan and acknowledge its risk of complications. I agree with the findings and documentation provided in the LOAN's notes. <Johnathon Miller - Last Filed: 12/25/23 23:45>
[2023-12-20] MEDS: ENOXAPARIN 30 MG/0.3 ML SQ SCH (08:03)
[2023-12-20] MEDS ORDERED: ENOXAPARIN 40 MG/0.4 ML SQ SCH (09:00)
[2023-12-20] MEDS ORDERED: AZITHROMYCIN IV 500 MG in NA CHLORIDE 0.9% 250 ML IVPB SCH (20:00)
[2023-12-20] MEDS ORDERED: CEFTRIAXONE 1,000 MG in NA CHLORIDE 0.9% 50 ML IVPB SCH (21:00)
[2023-12-21] MEDS: ZOLPIDEM TARTRATE 10 MG TABLET PO ONE ×2 (00:37→01:15)
[2023-12-21 02:08] VITALS: BMI 23.6
--- NOTE | 2023-12-21 08:09 | P.DS ---
Admission Date: 12/19/23 Discharge Date: 12/21/23 Reason for Admission: Generalized weakness Brief History of Present Illness: 68 yrs old Female with past medical history of hypertension, arthritis, history of carpal tunnel syndrome brought to ER with generalized weakness and multiple falls. Patient had recurrent falls lately without much reason. Denies any presyncope. Denies any chest pain. Denies shortness of breath. No nausea vomiting or diarrhea. No sick contacts Patient was assessed in the ER and was admitted for further management of Left lower lobe pneumonia and acute kidney injury - Physical Exam General: Alert, In no apparent distress, Oriented x3 HEENT: Atraumatic, Normocephalic Neck: Supple Respiratory: Clear to auscultation bilaterally, Normal air movement Cardiovascular: Normal pulses, Regular rate/rhythm, Normal S1 S2 Capillary refill: <2 Seconds Gastrointestinal: Soft and benign, W/out hepatosplenomegaly Musculoskeletal: No clubbing, No swelling Integumentary: No rashes, No breakdown Neurological: Normal speech, Normal strength at 5/5 x4 extr, Cranial nerves 3-12 intact Lymphatics: No axilla or inguinal lymphadenopathy Hospital Course: 68 yrs old Female with past medical history of hypertension, arthritis, history of carpal tunnel syndrome brought to ER with generalized weakness and multiple falls. Patient had recurrent falls lately without much reason. Denies any presyncope. Denies any chest pain. Denies shortness of breath. Noted to have left lower lobe pneumonia. Falls. She was evaluated by physical therapy, educated on ambulation, safe transfers. She is tolerating diet, stable to discharge home on p.o. antibiotics. With home health care. With physical therapy, patient needs to follow-up with PCP after discharge Continue home medicines as previously prescribed Left lower lobe pneumonia treated with IV antibiotics plan to discharge home on p.o. antibiotics cefdinir, albuterol inhaler, tessalon [place]. She was evaluated by physical therapy. Anemia of chronic disease, trend hemoglobin hematocrit after discharge, no overt bleeding noted Generalized weakness plan to discharge home with physical therapy GOAL: Clear understanding of disease process INSTRUCTIONS: Physician Discharge Instructions: -Follow-up with PCP in 1 to 2 weeks -Please call Dr. Miller at [phone] if any questions regarding hospital stay -Please call nursing station at [phone] if any nursing or medication questions -Return to the emergency room if symptoms worsen Diet: ADA, low sodium Activity: Fall precautions <Joann Martel - Last Filed: 12/25/23 05:51> Admission Date: 12/19/23 Discharge Date: 12/21/23 Hospital Course: Patient was seen and examined. Events of the last 24 hours have been noted. Spoke with with LOAN regarding patient's clinical picture after evaluating and examining the patient independently. I performed a substantial part of the MDM during this patient's care today. I personally made or approved the documented management plan and acknowledge its risk of complications. I agree with the findings and documentation provided in the LOAN's notes. <Johnathon Miller - Last Filed: 12/25/23 23:45> Disposition: IN HOME/HOME HEALTH CARE Discharge Condition: GOOD Vital Signs/Physical Exam: Temp Pulse Resp BP Pulse Ox 97.5 F 68 20 135/49 L 98 12/21/23 04:00 12/21/23 04:00 12/21/23 04:00 12/21/23 04:00 12/21/23 04:00 Laboratory Data at Discharge: WBC 6.60 thou/uL (4.3-10.9) 12/20/23 04:19 Hgb 7.9 g/dL (12.0-15.0) L D 12/20/23 04:19 Hct 24.1 % (36.0-45.0) L 12/20/23 04:19 Plt Count 261 thou/uL (152-406) 12/20/23 04:19 PT 11.4 SECONDS (9.4-12.5) 12/19/23 19:03 INR 1.02 12/19/23 19:03 APTT 25.8 SECONDS (24.3-36.9) 12/19/23 19:03 Sodium 141 mEq/L (136-145) D 12/20/23 04:19 Potassium 4.3 mEq/L (3.5-5.1) D 12/20/23 04:19 BUN 29 mg/dL (7-18) H 12/20/23 04:19 Creatinine 1.32 mg/dL (0.55-1.02) H 12/20/23 04:19 Glucose 103 mg/dL (74-106) 12/20/23 04:19 Magnesium 1.6 mg/dL (1.6-2.4) 12/19/23 19:03 Total Bilirubin 0.2 mg/dL (0.2-1.0) 12/20/23 04:19 AST 13 U/L (15-37) L 12/20/23 04:19 ALT < 14 U/L (13-56) 12/20/23 04:19 Alkaline Phosphatase 63 U/L (45-117) 12/20/23 04:19 <Joann Martel - Last Filed: 12/25/23 05:51> Vital Signs/Physical Exam: Temp Pulse Resp BP Pulse Ox 97.9 F 65 14 167/74 H 97 12/21/23 12:00 12/21/23 12:00 12/21/23 12:00 12/21/23 12:00 12/21/23 12:00 Laboratory Data at Discharge: WBC 6.60 thou/uL (4.3-10.9) 12/20/23 04:19 Hgb 7.9 g/dL (12.0-15.0) L D 12/20/23 04:19 Hct 24.1 % (36.0-45.0) L 12/20/23 04:19 Plt Count 261 thou/uL (152-406) 12/20/23 04:19 PT 11.4 SECONDS (9.4-12.5) 12/19/23 19:03 INR 1.02 12/19/23 19:03 APTT 25.8 SECONDS (24.3-36.9) 12/19/23 19:03 Sodium 141 mEq/L (136-145) D 12/20/23 04:19 Potassium 4.3 mEq/L (3.5-5.1) D 12/20/23 04:19 BUN 29 mg/dL (7-18) H 12/20/23 04:19 Creatinine 1.32 mg/dL (0.55-1.02) H 12/20/23 04:19 Glucose 103 mg/dL (74-106) 12/20/23 04:19 Magnesium 1.6 mg/dL (1.6-2.4) 12/19/23 19:03 Total Bilirubin 0.2 mg/dL (0.2-1.0) 12/20/23 04:19 AST 13 U/L (15-37) L 12/20/23 04:19 ALT < 14 U/L (13-56) 12/20/23 04:19 Alkaline Phosphatase 63 U/L (45-117) 12/20/23 04:19 <Johnathon Miller - Last Filed: 12/25/23 23:45> Diet: AHA Activity: Fall precautions Time spent managing pt's care (in minutes): 55 <Joann Martel - Last Filed: 12/25/23 05:51> <Johnathon Miller - Last Filed: 12/25/23 23:45> Home Medications: Zolpidem Tartrate [Ambien*] 15 mg PO DAILY 12/20/23 Albuterol Sulfate [Albuterol Sulfate Hfa] 8.5 gm IH Q4H PRN 30 Days #1 inh 12/21/23 Benzonatate [Tessalon [place]] 100 mg PO TID 10 Days #20 cap 12/21/23 Cefdinir [Cefdinir*] 300 mg PO BID 7 Days #14 cap 12/21/23 New Medications: Albuterol Sulfate [Albuterol Sulfate Hfa] 8.5 gm IH Q4H PRN 30 Days #1 inh PRN Reason: Shortness Of Breath Cefdinir [Cefdinir*] 300 mg PO BID 7 Days #14 cap Benzonatate [Tessalon [place]] 100 mg PO TID 10 Days #20 cap Physician Discharge Instructions: 68 yrs old Female with past medical history of hypertension, arthritis, history of carpal tunnel syndrome brought to ER with generalized weakness and multiple falls. Patient had recurrent falls lately without much reason. Denies any presyncope. Denies any chest pain. Denies shortness of breath. Noted to have left lower lobe pneumonia. Falls. She was evaluated by physical therapy, educated on ambulation, safe transfers. She is tolerating diet, stable to discharge home on p.o. antibiotics. With home health care. With physical therapy, patient needs to follow-up with PCP after discharge Continue home medicines as previously prescribed Left lower lobe pneumonia treated with IV antibiotics plan to discharge home on p.o. antibiotics Falls. She was evaluated by physical therapy. Anemia of chronic disease, trend hemoglobin hematocrit after discharge, no overt bleeding noted Generalized weakness plan to discharge home with physical therapy GOAL: Clear understanding of disease process INSTRUCTIONS: Physician Discharge Instructions: -Follow-up with PCP in 1 to 2 weeks -Please call Dr. Miller at [phone] if any questions regarding hospital stay -Please call nursing station at [phone] if any nursing or medication questions -Return to the emergency room if symptoms worsen Diet: ADA, low sodium Activity: Fall precautions Followup: OOT,OOT [Primary Care Provider] -
[2023-12-21] MEDS: ZOLPIDEM TARTRATE 10 MG TABLET PO SCH (09:00)
[2023-12-21 12:34] VITALS: BP 167/74; TEMP 97.9
--- NOTE | 2023-12-21 13:02 | EKG ---
Test Date: 2023-12-19 Test Time: 19:12:53 Associate Professor Of Pathology: GT MEASUREMENT RESULTS: Intervals: Rate: 69 SC: 148 QRSD: 88 QT: 392 QTc: 420 [place]: P: 58 SC: 148 QRS: 10 T: 48 INTERPRETIVE STATEMENTS: Normal sinus rhythm Low voltage QRS Borderline ECG Compared to ECG 09/08/2022 17:09:17 Low QRS voltage now present Electronically Signed On 12-21-23 12:56:13 CDT by Berlin Guallpa
== END 2023-12-21 14:08 | disposition home health service (06) | DRG 682 ==
LOC: ER 18:11 → ERHOLD 22:27 → 2ND 23:23
PROVIDERS: ADMIT Family Medicine; ATTEND Hospitalist
DX: N17.9 Acute kidney failure, unspecified (principal); J18.9 Pneumonia, unspecified organism; J96.01 Acute respiratory failure with hypoxia; E86.0 Dehydration; I10 Essential (primary) hypertension; M25.562 Pain in left knee; M25.552 Pain in left hip; S61.512A Laceration without foreign body of left wrist, initial encounter; D63.8 Anemia in other chronic diseases classified elsewhere; M19.90 Unspecified osteoarthritis, unspecified site; R29.6 Repeated falls; Z91.81 History of falling; Z79.899 Other long term (current) drug therapy
CPT/HCPCS: 36415; 70450; 71045; 71250; 72125; 74176; 80048; 80053; 80076; 81001; 83735; 84484; 85025; 85610; 85730; 93005; 96374; 96375; 97116; 97161; 97530; 99285; J0696; J1650; J2270; J3475; J7030; J7040; J7050

== ENCOUNTER 2024-08-01 02:48 | Emergency (ER) | payer BC, OTHER ==
[2024-08-01] MEDS ORDERED: METOCLOPRAMIDE 5 MG TAB ONE (03:01)
[2024-08-01] MEDS ORDERED: IBUPROFEN 200 MG TAB PO ONE (03:01)
[2024-08-01] MEDS ORDERED: HYDROCODONE/APAP 5/325 MG TAB ONE (03:01)
--- NOTE | 2024-08-01 05:21 | EDPHYS ---
Physician Documentation [facility] Name: rAmida Marie Age: 69 yrs Sex: Female : 1955 Arrival Date: 08/01/2024 Time: 02:48 Bed 2 Private MD: ED Physician Victor Manuel Treadwell HPI: 08/01 02:51 This 69 yrs old Other Race Female presents to ER via Unassigned with complaints of Fall sp4 Injury. 04:44 Patient presents with acute fall out of bed this morning with left forehead contusion sp4 and hematoma. . Historical: - Allergies: 02:53 No Known Allergies; jj7 - Home Meds: 03:14 zolpidem 10 mg Oral tablet 1 tab every day at bedtime [Active]; Celexa 5 MG Oral 1 tab jj7 daily [Active]; trazodone 100 mg Oral tablet 1 tab daily [Active]; bupropion HCl 75 mg Oral tablet 1 tab DAILY [Active]; Myrbetriq 25 mg oral Tablet, Extended Release 24 hr 1 tab daily [Active]; Lipitor 10 mg Oral tablet 1 tab daily [Active]; gabapentin 300 mg oral capsule 1 cap daily [Active]; [place] Oral 1 tablet four times a day [Active]; - PMHx: 02:53 Arthritis; Hypertensive disorder; Depressive disorder; jj7 - PSHx: 02:53 carpal tunnel release bilaterally; jj7 - Code Status:: Full code. - Immunization history:: Adult Immunizations up to date. - Infectious Disease History:: Denies. - Social history:: Smoking status: Patient denies any tobacco usage or history of. Patient/guardian denies using alcohol, street drugs, IV drugs. - Family history:: not pertinent. ROS: 04:46 Constitutional: Negative for fever, chills, and weight loss, positive for left sp4 forehead contusion and hematoma. 04:46 All other systems are negative, Exam: 04:46 Constitutional: This is a well developed, well nourished patient who is awake, alert, sp4 and in no acute distress. Head/Face: Normocephalic, left forehead hematoma without laceration. Eyes: Pupils equal round and reactive to light, extra-ocular motions intact. Lids and lashes normal. Conjunctiva and sclera are not injected. Cornea within normal limits. Periorbital areas with no swelling, redness, or edema. ENT: Nares patent. No nasal discharge, no septal abnormalities noted. Tympanic membranes are normal and external auditory canals are clear. Oropharynx with no redness, swelling, or masses, exudates, or evidence of obstruction, uvula midline. Mucous membranes moist. Neck: Trachea midline, no thyromegaly or masses palpated, and no cervical lymphadenopathy. Supple, full range of motion without nuchal rigidity, or vertebral point tenderness. Chest/axilla: Normal chest wall appearance and motion. Nontender with no deformity. No lesions are appreciated. Cardiovascular: Regular rate and rhythm with a normal S1 and S2. No gallops, murmurs, or rubs. Normal PMI, no JVD. No pulse deficits. Respiratory: Lungs have equal breath sounds bilaterally, clear to auscultation and percussion. No rales, rhonchi or wheezes noted. No increased work of breathing, no retractions or nasal flaring. Abdomen/GI: Soft, with normal bowel sounds. No distension or tympany. No guarding or rebound. No evidence of tenderness throughout. Back: No spinal tenderness. No costovertebral tenderness. Skin: Warm, dry with normal turgor. Normal color with no rashes, no lesions, and no evidence of cellulitis. MS/ Extremity: Pulses equal, no cyanosis. Neurovascular intact. Decreased range of motion of the left hip. Ambulatory with assistance Neuro: Awake and alert, GCS 15, oriented to person, place, time, and situation. Cranial nerves II-XII grossly intact. Motor strength 5/5 in all extremities. Sensory grossly intact. Psych: Awake, alert, with orientation to person, place and time. Behavior, mood, and affect are within normal limits Vital Signs: 02:53 BP 138 / 74; Pulse 73; Resp 18; Temp 97.8; Pulse Ox 100% ; Weight 122 kg; Height 5 ft. jj7 5 in. ; Pain 7/10; 04:46 BP 104 / 61; Pulse 65; Resp 19; Temp 97.8; Pulse Ox 95% ; Pain 2/10; bm8 02:53 Body Mass Index 44.76 (122.00 kg, 165.1 cm) jj7 02:53 Pain Scale: Adult jj7 04:46 Pain Scale: Adult bm8 Arianna Coma Score: 02:53 Eye Response: spontaneous(4). Motor Response: obeys commands(6). Verbal Response: jj7 oriented(5). Total: 15. 04:46 Eye Response: to voice(3). Motor Response: obeys commands(6). Verbal Response: bm8 oriented(5). Total: 14. 04:46 Eye Response: spontaneous(4). Motor Response: obeys commands(6). Verbal Response: sp4 oriented(5). Total: 15. Trauma Score (Adult): 02:53 Eye Response: spontaneous(1); Verbal Response: oriented(1); Motor Response: obeys jj7 commands(2); Systolic BP: > 89 mm Hg(4); Respiratory Rate: 10 to 29 per min(4); [place] Score: 15; Trauma Score: 12 MDM: 03:21 Medical Screening Exam initiated sp4 04:48 Differential diagnosis: abrasion, closed head injury, contusion, fracture, multiple sp4 trauma, sprain, strain. Data reviewed: vital signs, nurses notes, EMS record, radiologic studies, CT scan. 05:18 ED course: PROCEDURE: CT Head Without Intravenous Contrast CLINICAL INDICATION: The sp4 patient is 69 years old and is Female; Head injury. TECHNIQUE: Axial computed tomography images of the head/brain without intravenous contrast. Sagittal and coronal reformatted images were created and reviewed. This CT exam was performed using one or more of the following dose reduction techniques: automated exposure control, adjustment of the mA and/or kV according to patient size, and/or use of iterative reconstruction technique. COMPARISON: MR Brain 04/13/[address] Head 12/19/2023. FINDINGS: BRAIN: No extra-axial fluid collection. No intracranial hemorrhage. No transtentorial herniation. No focal gonzalez-white matter differentiation abnormality. MIDLINE SHIFT: None. VENTRICLES: Unremarkable No ventriculomegaly. BONES/JOINTS: No fracture of the calvarium or visualized facial bones. SOFT TISSUES: Small left of midline frontal scalp hematoma. SINUSES: No masses, bony erosion or evidence of acute sinusitis. MASTOID AIR CELLS: Unremarkable as visualized. No mastoid effusion. IMPRESSION: 1. Small left of midline frontal scalp hematoma. 2. No acute intracranial abnormality. . 08/01 03:20 Order name: CT Head Brain wo Cont sp4 Administered Medications: 03:04 Drug: MetoCLOPramide PO 10 mg PO once Route: PO; jj7 04:52 Follow up: Response: No adverse reaction bm8 03:05 Drug: HYDROcodone-acetaminophen PO 5 mg-325 mg 2 tabs PO once Route: PO; jj7 04:52 Follow up: Response: No adverse reaction bm8 03:05 Drug: Ibuprofen PO 600 mg PO once Route: PO; jj7 04:52 Follow up: Response: No adverse reaction bm8 Disposition Summary: 08/01/24 05:20 Discharge Ordered Notes: Location: Home sp4 Problem: new sp4 Symptoms: have improved sp4 Condition: Stable sp4 Diagnosis - Acute head injury, acute left forehead hematoma sp4 Followup: sp4 - With: Private Physician - When: 7 - 10 days - Reason: Recheck today's complaints Discharge Instructions: - Discharge Summary Sheet sp4 - Head Injury, Adult, [id number] sp4 Forms: - Patient Portal Instructions sp4 Signatures: Dispatcher [employer] Chau Esqueda RN RN jj7 Victor Manuel Treadwell MD MD sp4 Alberto Vargas RN bm8 Corrections: (The following items were deleted from the chart) 03:20 03:20 Head Brain Wo Cont+CT.RAD.BRZ ordered. BONNIE NICOLE
--- NOTE | 2024-08-01 05:21 | ER ---
Nurse's Notes [facility] Name: Armida Marie Age: 69 yrs Sex: Female : 1955 Arrival Date: 08/01/2024 Time: 02:48 Bed 2 Private MD: Diagnosis: Acute head injury, acute left forehead hematoma Presentation: 08/01 02:50 Chief complaint: Patient states: WAS SLEEPING AND ROLLED OUT OF BED AND HIT HER HEAD ON jj7 THE SIDE TABLE. HEMATOMA TO LEFT SIDE OF HEAD. HAS A HEADACHE. Care prior to arrival: IV initiated. 20 GA, in the left antecubital area. Mechanism of Injury: Fall out of bed. 02:50 Acuity: [place] 3 jj7 02:50 Method Of Arrival: EMS: [facility] 05:25 Coronavirus screen: At this time, the client does not indicate any symptoms associated bm8 with coronavirus-19. Ebola Screen: No symptoms or risks identified at this time. Initial Sepsis Screen: Does the patient meet any 2 criteria? No. Patient's initial sepsis screen is negative. Does the patient have a suspected source of infection? No. Patient's initial sepsis screen is negative. Risk Assessment: Do you want to hurt yourself or someone else? Patient reports no desire to harm self or others. Onset of symptoms was August 01, 2024 at 02:00. Triage Assessment: 02:57 General: Appears in no apparent distress. comfortable, Behavior is calm, cooperative, jj7 appropriate for age. Historical: - Allergies: 02:53 No Known Allergies; jj7 - Home Meds: 03:14 zolpidem 10 mg Oral tablet 1 tab every day at bedtime [Active]; Celexa 5 MG Oral 1 tab jj7 daily [Active]; trazodone 100 mg Oral tablet 1 tab daily [Active]; bupropion HCl 75 mg Oral tablet 1 tab DAILY [Active]; Myrbetriq 25 mg oral Tablet, Extended Release 24 hr 1 tab daily [Active]; Lipitor 10 mg Oral tablet 1 tab daily [Active]; gabapentin 300 mg oral capsule 1 cap daily [Active]; [place] Oral 1 tablet four times a day [Active]; - PMHx: 02:53 Arthritis; Hypertensive disorder; Depressive disorder; jj7 - PSHx: 02:53 carpal tunnel release bilaterally; jj7 - Code Status:: Full code. - Immunization history:: Adult Immunizations up to date. - Infectious Disease History:: Denies. - Social history:: Smoking status: Patient denies any tobacco usage or history of. Patient/guardian denies using alcohol, street drugs, IV drugs. - Family history:: not pertinent. Screenin:53 Abuse screen: Denies threats or abuse. Nutritional screening: No deficits noted. jj7 Tuberculosis screening: No symptoms or risk factors identified. 02:58 [facility] ED Fall Risk Assessment (Adult) History of falling in the last 3 months, jj7 including since admission Yes- single mechanical fall (1 pt) Confusion or Disorientation No (0 pts) Intoxicated or Sedated No (0 pts) Impaired Gait No (0 pts) Mobility Assist Device Used Yes (1 pt) Altered Elimination No (0 pt) Score/Fall Risk Level 0 - 2 = Low Risk Oriented to surroundings, Maintained a safe environment, Educated pt \T\ family on fall prevention, incl call for assistance when getting out of bed, Assessed \T\ reinforced patient's understanding of fall precautions. Primary Survey: 02:53 NO uncontrolled hemorrhage observed. A: The client is awake and alert. The airway is jj7 patent. A: The client is alert. Airway: patent. Breathing/Chest: Spontaneous respiratory effort, equal unlabored respirations, breath sounds clear bilaterally, regular pattern, symmetrical chest rise and fall. Circulation: No external hemorrhage present. Regular and strong central pulse, skin warm/dry/normal color. Disability Client is alert. Exposure/Environment: There is no evidence of uncontrolled external bleeding. A warming method has been applied: A warm blanket has been provided to the patient. Assessment: 02:50 General: Appears in no apparent distress. comfortable, Behavior is calm, cooperative, jj7 appropriate for age. Pain: Complains of pain in forehead. Neuro: Reports headache. Derm: Bruising that is on left side of forehead. Musculoskeletal: Reports pain in left leg CHRONIC LEFT HIP AND LEG PAIN. 04:46 Reassessment: Patient appears in no apparent distress at this time. Patient and/or bm8 family updated on plan of care and expected duration. Pain level reassessed. Patient states feeling better. Patient states symptoms have improved. 04:52 Reassessment: daughter of pt has expressed concern that mother (PT) maybe taking too bm8 much of her [place], Ambien and Alazopram sometimes in combination and this may be the cause of her fall and weakness. Provider informed of daughter's concerns. Vital Signs: 02:53 BP 138 / 74; Pulse 73; Resp 18; Temp 97.8; Pulse Ox 100% ; Weight 122 kg; Height 5 ft. jj7 5 in. ; Pain 7/10; 04:46 BP 104 / 61; Pulse 65; Resp 19; Temp 97.8; Pulse Ox 95% ; Pain 2/10; bm8 02:53 Body Mass Index 44.76 (122.00 kg, 165.1 cm) jj7 02:53 Pain Scale: Adult jj7 04:46 Pain Scale: Adult bm8 Arianna Coma Score: 02:53 Eye Response: spontaneous(4). Motor Response: obeys commands(6). Verbal Response: jj7 oriented(5). Total: 15. 04:46 Eye Response: to voice(3). Motor Response: obeys commands(6). Verbal Response: bm8 oriented(5). Total: 14. 04:46 Eye Response: spontaneous(4). Motor Response: obeys commands(6). Verbal Response: sp4 oriented(5). Total: 15. Trauma Score (Adult): 02:53 Eye Response: spontaneous(1); Verbal Response: oriented(1); Motor Response: obeys jj7 commands(2); Systolic BP: > 89 mm Hg(4); Respiratory Rate: 10 to 29 per min(4); Arianna Score: 15; Trauma Score: 12 ED Course: 02:49 Patient arrived in ED. vk 02:50 Chau Jordan RN is Primary Nurse. jj7 02:51 Victor Manuel Treadwell MD is Attending Physician. sp4 02:52 Triage completed. jj7 02:53 Patient has correct armband on for positive identification. Bed in low position. Call jj7 light in reach. Side rails up X2. 02:53 Patient maintains SpO2 saturation greater than 95% on room air. jj7 02:57 Arm band placed on right wrist. Patient placed in an exam room. jj7 03:59 CT Head Brain wo Cont In Process Unspecified. EDMS 05:24 Provided Education on: post er care. bm8 05:24 No provider procedures requiring assistance completed. IV discontinued, intact, bm8 bleeding controlled, No redness/swelling at site. Pressure dressing applied. Administered Medications: 03:04 Drug: MetoCLOPramide PO 10 mg PO once Route: PO; jj7 04:52 Follow up: Response: No adverse reaction bm8 03:05 Drug: HYDROcodone-acetaminophen PO 5 mg-325 mg 2 tabs PO once Route: PO; jj7 04:52 Follow up: Response: No adverse reaction bm8 03:05 Drug: Ibuprofen PO 600 mg PO once Route: PO; jj7 04:52 Follow up: Response: No adverse reaction bm8 Medication: 04:46 VIS not applicable for this client. bm8 Outcome: 05:20 Discharge ordered by . sp4 05:24 Discharged to home via wheelchair, bm8 05:24 Condition: stable 05:24 Discharge instructions given to patient, friend, Instructed on discharge instructions, follow up and referral plans. no drinking with medication, no driving heavy equipment, medication usage, safety practices, Demonstrated understanding of instructions, follow-up care, medications, 05:31 Patient left the ED. jj7 Signatures: Dispatcher [employer] Chau Esqueda RN RN jj7 Victor Manuel Treadwell MD MD sp4 Gale Cordova Brad, RN RN bm8
[2024-08-01 05:36] VITALS: TEMP 97.8
[2024-08-01 05:37] VITALS: BP 104/61; O2SAT 95
--- NOTE | 2024-08-01 05:50 | RAD REPORT ---
PROCEDURE: CT Head Without Intravenous Contrast CLINICAL INDICATION: The patient is 69 years old and is Female; Head injury. TECHNIQUE: Axial computed tomography images of the head/brain without intravenous contrast. Sagittal and coron al reformatted images were created and reviewed. This CT exam was performed using one or more of the following dose reduction techniques: automated exposure control, adjustment of the mA and/or kV according to patient size, and/or use of iterative reconstruction technique. COMPARISON: MR Brain 04/13/[address] Head 12/19/2023. FINDINGS: BRAIN: No extra-axial fluid collection. No intracranial hemorrhage. No transtentorial herniation. N o focal gonzalez-white matter differentiation abnormality. MIDLINE SHIFT: None. VENTRICLES: Unremarkable No ventriculomegaly. BONES/JOINTS: No fracture of the calvarium or visualized facial bones. SOFT TISSUES: Small left of midline frontal scalp hematoma. SINUSES: No masses, bony erosion or evidence of acute sinusitis. MASTOID AIR CELLS: Unremarkable as visualized. No mastoid effusion. IMPRESSION: 1. Small left of midline frontal scalp hematoma. 2. No acute intracranial abnormality. Electronically signed by: Bentley Rogers MD 08/01/2024 04:36 AM CDT Due to temporary technical issues with the PACS/[email or web address] reporting system, reports are being garo d by the in-house radiologist without review as a courtesy to ensure prompt reporting the interpreting radiologist is fully responsible for the content of the report. Transcribed Date/Time: 08/01/2024 5:50 AM
== END 2024-08-01 05:31 | disposition home or self-care (01) ==
LOC: ER 02:48
DX: S00.83XA Contusion of other part of head, initial encounter (principal); W06.XXXA Fall from bed, initial encounter
CPT/HCPCS: 70450; 99284